=== PATIENT | male | born 1935 | race Caucasian/White ===

== ENCOUNTER 2021-09-02 15:22 | Inpatient (IN) | payer MEDICARE, BC ==
[2021-09-02] MEDS ORDERED: ACETAMINOPHEN TAB 325 MG TAB PO PRN (18:38)
[2021-09-02] MEDS ORDERED: NALOXONE 0.4 MG/ML 1 ML VIAL IV PRN (18:38)
[2021-09-02] MEDS ORDERED: MELATONIN 3 MG TABLET PO PRN (18:38)
[2021-09-02] MEDS ORDERED: ONDANSETRON 4 MG/2 ML VIAL IVP PRN (18:38)
[2021-09-02] MEDS ORDERED: VANCOMYCIN IV PER PHARMACY 1 EACH MISC MISCELLANE PRN (18:53)
[2021-09-02 20:29] LABS: Glucose,Whole Blood 250 mg/dL (75-99)
[2021-09-02] MEDS ORDERED: MORPHINE SULFATE IR 15 MG TABLET PO SCH (21:00)
[2021-09-02] MEDS ORDERED: VANCOMYCIN 1,500 MG in SODIUM CHLORIDE 0.9% 250 ML IVPB ONE (21:30)
[2021-09-02] MEDS: GLIMEPIRIDE 4 MG TAB PO SCH (21:59)
[2021-09-02] MEDS: carvediloL 3.125 MG TAB PO SCH (21:59)
[2021-09-02] MEDS: INSULIN ASPART (NovoLOG) 100 UNIT/ML VIAL SQ SCH (22:00)
[2021-09-02] MEDS: HEPARIN SODIUM,PORCINE/PF 5,000 UNIT/0.5 ML SYRINGE SQ SCH (22:00)
[2021-09-02] MEDS: traZODone HCL 50 MG TAB PO SCH (22:00)
[2021-09-02] MEDS: PREGABALIN 75 MG CAP PO SCH (22:00)
[2021-09-02] MEDS: MORPHINE SULFATE ER 15 MG TABLET PO SCH (22:00)
[2021-09-02] MEDS: AMPICILLIN-SULBACTAM 3 GM in SODIUM CHLORIDE 0.9% 100 ML IVPB SCH (22:32)
[2021-09-03 04:33] LABS: Basophils % (A) 0 %; Eosinophils # (A) 0.1 k/uL (0-0.7); Eosinophils % (A) 1 %; HCT 40.2 % (39.0-53.0); Lymphocytes # (A) 0.9 k/uL (1.0-4.8); Lymphocytes % (A) 14 %; MCH 27.3 pg (25.0-35.0); MCHC 32.4 g/dL (31.0-37.0); MCV 84.3 fL (80.0-100.0); Mean Platelet Volume 8.1; Monocytes # (A) 0.4 k/uL (0-1.0); Monocytes % (A) 7 %; Neutrophils # (A) 4.7 k/uL (1.3-7.7); Neutrophils % (A) 75 %; Platelet Count 131 k/uL (150-450); RBC 4.77 m/uL (4.30-5.90); RDW 14.2 % (11.5-15.5); WBC 6.2 k/uL (3.8-10.6)
[2021-09-03 04:35] LABS: INR 1.2 (<1.2); Prothrombin Time 12.7 sec (9.0-12.0)
[2021-09-03 04:48] LABS: ALT 13 U/L (4-49); AST 29 U/L (17-59); African American GFR (CKD) 44 (>60 ml/min/1.73 sqM); Albumin 3.4 g/dL (3.5-5.0); Albumin/Globulin Ratio 1.2; Alkaline Phosphatase 40 U/L (38-126); Anion Gap 7 mmol/L; Blood Urea Nitrogen 44 mg/dL (9-20); Carbon Dioxide 30 mmol/L (22-30); Chloride 98 mmol/L (98-107); Globulin 2.9 g/dL; Glucose 114 mg/dL (74-99); Magnesium 2.1 mg/dL (1.6-2.3); Non-African American GFR(CKD) 38 (>60 ml/min/1.73 sqM); Potassium 3.8 mmol/L (3.5-5.1); Sodium 135 mmol/L (137-145); Total Bilirubin 1.2 mg/dL (0.2-1.3); Total Protein 6.3 g/dL (6.3-8.2)
--- NOTE | 2021-09-03 06:49 | P.GSCN ---
History of Present Illness History of present illness: 86-year-old gentleman who is been admitted to the hospital with gangrene of the left foot big toe. According to patient he was treated for wound on his left big toe at the wound clinic for the last few months is getting worse patient has been admitted I was consulted for evaluation and treatment his left big toe has a gangrene of the some redness on the dorsal aspect of the foot Medical history history of coronary artery disease patient had a CABG and stent placed in the past On examination neck is supple no bruit appreciated Chest is clear first and second sound normal good and both lungs Abdomen is soft non-tender Vascular examination brachial radial and femoral pulses are present dorsal pedis is present patient has a left big toe gangrene with some redness noted on the d orsal suspect the foot Plan is left big toe amputation risk and complication discussed we will arrange for surgery keep patient nothing by mouth Past Medical History Past Medical History: Heart Failure, Diabetes Mellitus, Eye Disorder, Hypertension, Myocardial Infarction ([place]), Prostate Disorder, Skin Disorder Additional Past Medical History / Comment(s): MT's, stent, nueropathy, prostate cancer, cellulitis, chronic back pain Last Myocardial Infarction Date:: Pt unaware History of Any Multi-Drug Resistant Organisms: None Reported Past Surgical History: Back Surgery, Cholecystectomy, Heart Catheterization, Heart Catheterization With Stent, Orthopedic Surgery, Pacemaker, Tonsillectomy Additional Past Surgical History / Comment(s): stents, pacemaker w/def Past Anesthesia/Blood Transfusion Reactions: No Reported Reaction Date of Last Stent Placement:: 01/17/21 Type of Cardiac Device: Permanent Pacemaker Device Placement Date:: 09/11/17 Past Psychological History: Depression Smoking Status: Never smoker Past Alcohol Use History: None Reported Past Drug Use History: None Reported Medications and Allergies Home Medications Medication Instructions Recorded Confirmed Type Aspirin 81 mg PO DAILY 09/02/21 09/02/21 History Blue Emu Otc Cream 1 applic TOPICAL DAILY PRN 09/02/21 09/02/21 History Bumetanide [BUMEX] 0.5 mg PO DAILY 09/02/21 09/02/21 History Celecoxib [CeleBREX] 100 mg PO BID PRN 09/02/21 09/02/21 History Cholecalciferol [Vitamin D3 (25 25 mcg PO DAILY 09/02/21 09/02/21 History Mcg = 1000 Iu)] DULoxetine HCL [Cymbalta] 30 mg PO DAILY 09/02/21 09/02/21 History Digoxin [Lanoxin] 125 mcg PO DAILY 09/02/21 09/02/21 History Fenofibric Acid (Choline) 135 mg PO DAILY 09/02/21 09/02/21 History [Trilipix] Glimepiride [Amaryl] 4 mg PO BID 09/02/21 09/02/21 History Lidocaine 5% Patch [Lidoderm] 1 patch TOPICAL DAILY PRN 09/02/21 09/02/21 History Mometasone/Formoterol [Dulera 100 1 puff PO RT-BID 09/02/21 09/02/21 History Mcg-5 Mcg Inhaler] Morphine Sulfate 15 mg PO BID 09/02/21 09/02/21 History Multivitamins, Thera [Multivitamin 1 tab PO DAILY 09/02/21 09/02/21 History (formulary)] Pantoprazole [Protonix] 40 mg PO DAILY 09/02/21 09/02/21 History Pregabalin [Lyrica] 75 mg PO BID 09/02/21 09/02/21 History Rosuvastatin [Crestor] 10 mg PO DAILY 09/02/21 09/02/21 History Tamsulosin HCl [Flomax] 0.4 mg PO DAILY 09/02/21 09/02/21 History carvediloL [Coreg] 3.125 mg PO BID 09/02/21 09/02/21 History traZODone HCL [TraZODone HCl] 50 mg PO HS 09/02/21 09/02/21 History Allergies Allergy/AdvReac Type Severity Reaction Status Date / Time contrast dye Allergy Unknown Uncoded 09/02/21 21:04 Surgical - Exam Vital Signs Temp Pulse Resp BP Pulse Ox 98.5 F 81 18 125/67 96 09/02/21 18:11 09/02/21 18:11 09/02/21 18:11 09/02/21 18:11 09/02/21 18:11 Results - Labs 09/03/21 03:57 09/03/21 03:57 Abnormal Lab Results - Last 24 Hours (Table) 09/02/21 09/02/21 09/03/21 Range/Units 19:07 20:27 03:57 Plt Count 131 L (150-450) k/uL Lymphocytes # 0.9 L (1.0-4.8) k/uL PT (9.0-12.0) sec INR (<1.2) Sodium (137-145) mmol/L BUN (9-20) mg/dL Creatinine 1.51 H (0.66-1.25) mg/dL Glucose (74-99) mg/dL POC Glucose (mg/dL) 250 H (75-99) mg/dL Albumin (3.5-5.0) g/dL 09/03/21 09/03/21 Range/Units 03:57 03:57 Plt Count (150-450) k/uL Lymphocytes # (1.0-4.8) k/uL PT 12.7 H (9.0-12.0) sec INR 1.2 H (<1.2) Sodium 135 L (137-145) mmol/L BUN 44 H (9-20) mg/dL Creatinine 1.62 H (0.66-1.25) mg/dL Glucose 114 H (74-99) mg/dL POC Glucose (mg/dL) (75-99) mg/dL Albumin 3.4 L (3.5-5.0) g/dL Diabetes panel 09/02/21 09/03/21 Range/Units 19:07 03:57 Sodium 135 L (137-145) mmol/L Potassium 3.8 (3.5-5.1) mmol/L Chloride 98 (98-107) mmol/L Carbon Dioxide 30 (22-30) mmol/L BUN 44 H (9-20) mg/dL Creatinine 1.51 H 1.62 H (0.66-1.25) mg/dL Glucose 114 H (74-99) mg/dL Calcium 9.0 (8.4-10.2) mg/dL AST 29 (17-59) U/L ALT 13 (4-49) U/L Alkaline Phosphatase 40 (38-126) U/L Total Protein 6.3 (6.3-8.2) g/dL Albumin 3.4 L (3.5-5.0) g/dL Calcium panel 09/03/21 Range/Units 03:57 Calcium 9.0 (8.4-10.2) mg/dL Phosphorus 3.0 (2.5-4.5) mg/dL Albumin 3.4 L (3.5-5.0) g/dL Pituitary panel 09/02/21 09/03/21 Range/Units 19:07 03:57 Sodium 135 L (137-145) mmol/L Potassium 3.8 (3.5-5.1) mmol/L Chloride 98 (98-107) mmol/L Carbon Dioxide 30 (22-30) mmol/L BUN 44 H (9-20) mg/dL Creatinine 1.51 H 1.62 H (0.66-1.25) mg/dL Glucose 114 H (74-99) mg/dL Calcium 9.0 (8.4-10.2) mg/dL Adrenal panel 09/02/21 09/03/21 Range/Units 19:07 03:57 Sodium 135 L (137-145) mmol/L Potassium 3.8 (3.5-5.1) mmol/L Chloride 98 (98-107) mmol/L Carbon Dioxide 30 (22-30) mmol/L BUN 44 H (9-20) mg/dL Creatinine 1.51 H 1.62 H (0.66-1.25) mg/dL Glucose 114 H (74-99) mg/dL Calcium 9.0 (8.4-10.2) mg/dL Total Bilirubin 1.2 (0.2-1.3) mg/dL AST 29 (17-59) U/L ALT 13 (4-49) U/L Alkaline Phosphatase 40 (38-126) U/L Total Protein 6.3 (6.3-8.2) g/dL Albumin 3.4 L (3.5-5.0) g/dL
[2021-09-03 07:25] LABS: Glucose,Whole Blood 91 mg/dL (75-99)
[2021-09-03] MEDS: HEPARIN SODIUM,PORCINE/PF 5,000 UNIT/0.5 ML SYRINGE SQ SCH ×2 (07:33→20:51)
[2021-09-03] MEDS: INSULIN ASPART (NovoLOG) 100 UNIT/ML VIAL SQ SCH ×4 (09:05→21:13)
[2021-09-03] MEDS: AMPICILLIN-SULBACTAM 3 GM in SODIUM CHLORIDE 0.9% 100 ML IVPB SCH ×2 (09:06→20:50)
[2021-09-03] MEDS: ATORVASTATIN 20 MG TAB PO SCH (09:48)
[2021-09-03] MEDS: MORPHINE SULFATE ER 15 MG TABLET PO SCH ×2 (09:50→20:52)
[2021-09-03] MEDS: DIGOXIN 125 MCG TAB PO SCH (09:51)
[2021-09-03] MEDS: PREGABALIN 75 MG CAP PO SCH ×2 (09:52→20:51)
[2021-09-03] MEDS: FENOFIBRATE 160 MG TAB PO SCH (09:52)
[2021-09-03] MEDS: GLIMEPIRIDE 4 MG TAB PO SCH ×2 (09:55→20:52)
[2021-09-03] MEDS: CHOLECALCIFEROL 25 MCG (1000 IU) TABLET PO SCH (09:55)
[2021-09-03] MEDS: TAMSULOSIN 0.4 MG CAP.ER.24H PO SCH (09:56)
[2021-09-03] MEDS: PANTOPRAZOLE 40 MG TABLET PO SCH (10:19)
[2021-09-03] MEDS: carvediloL 3.125 MG TAB PO SCH ×2 (11:01→17:44)
[2021-09-03 12:04] LABS: Glucose,Whole Blood 62 mg/dL (75-99)
[2021-09-03] MEDS ORDERED: DEXTROSE 50% SYRINGE 50 ML IVP ONE (12:08)
[2021-09-03] MEDS ORDERED: DEXTROSE 50% SYRINGE 50 ML IVP STA (12:09)
[2021-09-03 12:32] LABS: Glucose,Whole Blood 182 mg/dL (75-99)
--- NOTE | 2021-09-03 13:42 | P.HPIM ---
History of Present Illness H&P Date: 09/03/21 This is an 86-year-old male who was recently admitted to [facility] for increasing pain of the right great toe and concern for cellulitis with gangrene. Patient was transferred here to [facility] for further evaluation and initially started on IV Unasyn and will continue with Unasyn and vancomycin and consult infectious disease. Vascular surgery Dr. Mendoza also consulted for possible amputation of the right great toe. Patient states he has been following at the wound care center in [place] who has been treating the foot infection and has progressively gotten worse in transferred here for further evaluation. Patient follows with in the outpatient setting. Louisa vences has a past medical history of heart failure, atrial fibrillation, CAD, arthritis, anxiety, depression diabetes mellitus type 2, I disorder, hypertension, myocardial infarction with stents in December 2020, permanent pacemaker placement in 2016 prostate cancer, and chronic back pain. patient also follows at the pain clinic every 2 months for his chronic back pain and is prescribed MS Contin. Patient denies having any right foot pain but his continued with chronic back pain during this hospitalization. Right great toe is positive for necrotic tissue and eschar noted along with some surrounding cellulitis with redness and inflammation that is extending up the dorsal aspect of the right foot and stops midfoot. Plan is for amputation of the right great toe with vascular surgery this afternoon. Initial labs show a white blood count of 6.2, hemoglobin is 13.0, platelets are 131, INR is 1.2, sodium is 135, potassium is 3.8, creatinine is 1.62, and BUN is 44, calcium is 9.0, phosphorus is 3.0, magnesium is 2.1, liver functions within normal limits. Review of Systems Constitutional: Denies chills, Denies fever Eyes: bilateral decreased vision (Cataracts) Ears, nose, mouth and throat: Denies headache, Denies sore throat Cardiovascular: Denies chest pain, Denies shortness of breath Respiratory: Denies cough Gastrointestinal: Denies abdominal pain, Denies diarrhea, Denies nausea, Denies vomiting Musculoskeletal: Reports low back pain (Chronic back pain, sees pain management outpatient) Integumentary: Reports color changes, Reports darkening of skin, Reports foot/leg ulcers Neurological: Denies numbness, Denies weakness Psychiatric: Denies anxiety, Denies depression Endocrine: Denies fatigue, Denies weight change Past Medical History Past Medical History: Cancer, Heart Failure, Diabetes Mellitus, Eye Disorder, Hypertension, Myocardial Infarction ([place]), Prostate Disorder, Skin Disorder Additional Past Medical History / Comment(s): [place]'s, stent, nueropathy, prostate cancer, cellulitis, chronic back pain Last Myocardial Infarction Date:: Pt unaware History of Any Multi-Drug Resistant Organisms: None Reported Past Surgical History: Back Surgery, Cholecystectomy, Heart Catheterization, Heart Catheterization With Stent, Orthopedic Surgery, Pacemaker, Tonsillectomy Additional Past Surgical History / Comment(s): stents, pacemaker w/def Past Anesthesia/Blood Transfusion Reactions: No Reported Reaction Date of Last Stent Placement:: 01/17/21 Type of Cardiac Device: Permanent Pacemaker Device Placement Date:: 09/11/17 Past Psychological History: Depression Smoking Status: Never smoker Past Alcohol Use History: None Reported Past Drug Use History: None Reported Medications and Allergies Home Medications Medication Instructions Recorded Confirmed Type Aspirin 81 mg PO DAILY 09/02/21 09/02/21 History Blue Emu Otc Cream 1 applic TOPICAL DAILY PRN 09/02/21 09/02/21 History Bumetanide [BUMEX] 0.5 mg PO DAILY 09/02/21 09/02/21 History Celecoxib [CeleBREX] 100 mg PO BID PRN 09/02/21 09/02/21 History Cholecalciferol [Vitamin D3 (25 25 mcg PO DAILY 09/02/21 09/02/21 History Mcg = 1000 Iu)] DULoxetine HCL [Cymbalta] 30 mg PO DAILY 09/02/21 09/02/21 History Digoxin [Lanoxin] 125 mcg PO DAILY 09/02/21 09/02/21 History Fenofibric Acid (Choline) 135 mg PO DAILY 09/02/21 09/02/21 History [Trilipix] Glimepiride [Amaryl] 4 mg PO BID 09/02/21 09/02/21 History Lidocaine 5% Patch [Lidoderm] 1 patch TOPICAL DAILY PRN 09/02/21 09/02/21 History Mometasone/Formoterol [Dulera 100 1 puff PO RT-BID 09/02/21 09/02/21 History Mcg-5 Mcg Inhaler] Morphine Sulfate 15 mg PO BID 09/02/21 09/02/21 History Multivitamins, Thera [Multivitamin 1 tab PO DAILY 09/02/21 09/02/21 History (formulary)] Pantoprazole [Protonix] 40 mg PO DAILY 09/02/21 09/02/21 History Pregabalin [Lyrica] 75 mg PO BID 09/02/21 09/02/21 History Rosuvastatin [Crestor] 10 mg PO DAILY 09/02/21 09/02/21 History Tamsulosin HCl [Flomax] 0.4 mg PO DAILY 09/02/21 09/02/21 History carvediloL [Coreg] 3.125 mg PO BID 09/02/21 09/02/21 History traZODone HCL [TraZODone HCl] 50 mg PO HS 09/02/21 09/02/21 History Allergies Allergy/AdvReac Type Severity Reaction Status Date / Time contrast dye Allergy Unknown Uncoded 09/02/21 21:04 Physical Exam Vitals: Vital Signs Temp Pulse Resp BP Pulse Ox 09/03/21 05:00 98.6 F 80 18 96/60 94 L 09/02/21 20:17 18 09/02/21 20:00 99.2 F 79 16 125/71 95 09/02/21 18:11 98.5 F 81 18 125/67 96 Intake and Output 09/02/21 09/03/21 09/03/21 22:59 06:59 14:59 Intake Total 225 Balance 225 Intake: Intake, IV Titration 225 Amount Ampicillin-Sulbactam 3 gm 100 In Sodium Chloride 0.9% 100 ml @ 200 mls/hr IVPB Q12HR [facility] Rx#:[id number] Vancomycin 1,500 mg In 125 Sodium Chloride 0.9% 250 ml @ 125 mls/hr IVPB Q24H [facility] Rx#:[id number] Other: Voiding Method Toilet Urinal Weight 86 kg Gen: This is a 86-year-old male awake, alert and oriented 3, well-developed, well-nourished. HEENT: Head is atraumatic, normocephalic. Pupils equal, round. Sclerae is anicteric. NECK: Supple. No JVD. No lymphadenopathy. No thyromegaly. LUNGS: Clear to auscultation. No wheezes or rhonchi. No intercostal retractions. HEART: S1, S2 are muffled ABDOMEN: Soft. Bowel sounds are present. No masses. No tenderness. EXTREMITIES: Right foot erythema along with some swelling noted at the dorsal aspect of the right foot that travels to the mid center of the foot along with some necrotic tissue and eschar noted at the right great toe with some clear drainage noted as well. No calf tenderness. NEUROLOGICAL: Patient is awake, alert and oriented x3. Cranial nerves 2 through 12 are grossly intact. Results CBC & Chem 7: 09/03/21 03:57 09/03/21 03:57 Labs: Abnormal Lab Results - Last 24 Hours (Table) 09/02/21 09/02/21 09/03/21 Range/Units 19:07 20:27 03:57 Plt Count 131 L (150-450) k/uL Lymphocytes # 0.9 L (1.0-4.8) k/uL PT (9.0-12.0) sec INR (<1.2) Sodium (137-145) mmol/L BUN (9-20) mg/dL Creatinine 1.51 H (0.66-1.25) mg/dL Glucose (74-99) mg/dL POC Glucose (mg/dL) 250 H (75-99) mg/dL Albumin (3.5-5.0) g/dL 09/03/21 09/03/21 Range/Units 03:57 03:57 Plt Count (150-450) k/uL Lymphocytes # (1.0-4.8) k/uL PT 12.7 H (9.0-12.0) sec INR 1.2 H (<1.2) Sodium 135 L (137-145) mmol/L BUN 44 H (9-20) mg/dL Creatinine 1.62 H (0.66-1.25) mg/dL Glucose 114 H (74-99) mg/dL POC Glucose (mg/dL) (75-99) mg/dL Albumin 3.4 L (3.5-5.0) g/dL Thrombosis Risk Factor Assmnt - DVT/VTE Prophylaxis DVT/VTE Prophylaxis: Pharmacologic Prophylaxis ordered - Choose All That Apply Any of the Below Risk Factors Present?: No Each Risk Factor Represents 2 Points: Malignancy Each Risk Factor Represents 3 Points: Age 75 years or older Other congenital or acquired thrombophilia - If yes, enter type in comment: No Thrombosis Risk Factor Assessment Total Risk Factor Score: 5 Thrombosis Risk Factor Assessment Level: High Risk Assessment and Plan Assessment: Right great toe gangrene with surrounding cellulitis Diabetes mellitus type 2 Acute kidney injury most likely prerenal Possible osteomyelitis of the right toe Chronic low back pain Chronic heart failure, EF unknown Hypertension Peripheral neuropathy Permanent pacemaker placement Past medical history of myocardial infarction with stent placement History of anxiety/depression Plan: Recommend to continue with current medications and patient is currently nothing by mouth and monitor blood sugars before meals and at bedtime closely as patient had a blood sugar reading of 62 secondary to being nothing by mouth for surgery this afternoon. Patient was given an amp of D50 and will monitor closely. Resume diet when surgery is complete. Infectious disease consulted and patient is maintained on IV Unasyn along with IV vancomycin. Vascular surgery Dr. Mendoza consulted and evaluated the patient and patient will undergo amputation of the right great toe this afternoon secondary to gangrene and will await surgical report. Patient does have a past medical history of heart failure and states his kidney functions are chronically 1.6 1.7 and takes Bumex and will hold for now and possibly resume in the morning. Other appropriate home medications have been resumed and will monitor closely. Time with Patient: Greater than 30
[2021-09-03] MEDS ORDERED: carvediloL 3.125 MG TAB PO ONE (14:45)
[2021-09-03] MEDS ORDERED: LACTATED RINGERS 1,000 ML IV ONE (14:50)
[2021-09-03] MEDS ORDERED: LIDOCAINE 1% INJ 10MG/ML (20 ML MDV) SQ ONE ×2 (15:22)
--- NOTE | 2021-09-03 16:31 | HP ---
HISTORY AND PHYSICAL ADDENDUM TO HISTORY AND PHYSICAL: ADDENDUM: Right foot gangrene for right foot big toe amputation. MMODL / IJN: [id number] /
--- NOTE | 2021-09-03 16:31 | OP ---
OPERATIVE REPORT PREOPERATIVE DIAGNOSIS: Gangrene in the right foot big toe. POSTOPERATIVE DIAGNOSIS: Gangrene in the right foot big toe. PROCEDURE: Amputation of the right foot big toe at metatarsophalangeal joint. ANESTHESIA: IV sedation and local anesthesia. PROCEDURE DESCRIPTION: This patient was brought to the operating room. Right foot was prepped and draped in usual sterile manner. This patient has a chronic wound on the right foot big toe with gangrene changes involving the big toe. Lidocaine plain 1% plain was infiltrated for the ring block and incision was made, elliptical, on the dorsal aspect of the foot, went circumferentially around the plantar aspect of the foot, deepened through skin, fat and fascia. Then we divided the tendons on the plantar aspect and then on the dorsal aspect. The big toe was kept in flexion position until we reached the metatarsophalangeal joint, and ligaments were divided and the big toe was removed. There were some bleeding points which were suture-ligated with 4-0 Prolene. Wound was copiously irrigated with hydrogen peroxide and saline. Incision was closed in 2 layers using 0 Vicryl and skin was closed with 3-0 nylon with interrupted suture. Dressing was applied. The patient tolerated the procedure well and was transferred to the recovery room in satisfactory condition. MMODL / IJN: [id number] /
[2021-09-03 16:41] LABS: Glucose,Whole Blood 61 mg/dL (75-99)
[2021-09-03 16:42] LABS: Glucose,Whole Blood 56 mg/dL (75-99)
[2021-09-03] MEDS ORDERED: HYDROmorphone 0.5 MG/0.5 ML SYRINGE IVP ONE (17:11)
[2021-09-03 17:17] LABS: Glucose,Whole Blood 62 mg/dL (75-99)
[2021-09-03 17:43] LABS: Glucose,Whole Blood 123 mg/dL (75-99)
[2021-09-03] MEDS: traZODone HCL 50 MG TAB PO SCH (20:52)
[2021-09-03 21:00] LABS: Glucose,Whole Blood 228 mg/dL (75-99)
[2021-09-03] MEDS: VANCOMYCIN 1,500 MG in SODIUM CHLORIDE 0.9% 250 ML IVPB SCH (22:36)
[2021-09-04] MEDS: MORPHINE SULFATE ER 15 MG TABLET PO SCH ×2 (04:31→20:36)
[2021-09-04 07:29] LABS: Glucose,Whole Blood 202 mg/dL (75-99)
[2021-09-04] MEDS: carvediloL 3.125 MG TAB PO SCH ×2 (08:23→18:07)
[2021-09-04] MEDS: PANTOPRAZOLE 40 MG TABLET PO SCH (08:24)
[2021-09-04] MEDS: HYDROcodone/APAP 5-325MG 1 EACH TAB PO PRN ×2 (08:30→19:11)
[2021-09-04] MEDS: GLIMEPIRIDE 4 MG TAB PO SCH ×2 (09:37→20:36)
[2021-09-04] MEDS: ATORVASTATIN 20 MG TAB PO SCH (09:37)
[2021-09-04] MEDS: PREGABALIN 75 MG CAP PO SCH ×2 (09:39→20:37)
[2021-09-04] MEDS: DIGOXIN 125 MCG TAB PO SCH (09:40)
[2021-09-04] MEDS: TAMSULOSIN 0.4 MG CAP.ER.24H PO SCH (09:40)
[2021-09-04] MEDS: FENOFIBRATE 160 MG TAB PO SCH (09:40)
[2021-09-04] MEDS: CHOLECALCIFEROL 25 MCG (1000 IU) TABLET PO SCH (09:40)
[2021-09-04] MEDS: HEPARIN SODIUM,PORCINE/PF 5,000 UNIT/0.5 ML SYRINGE SQ SCH ×2 (10:06→20:36)
[2021-09-04] MEDS: AMPICILLIN-SULBACTAM 3 GM in SODIUM CHLORIDE 0.9% 100 ML IVPB SCH ×2 (10:06→19:46)
[2021-09-04] MEDS: INSULIN ASPART (NovoLOG) 100 UNIT/ML VIAL SQ SCH ×4 (10:07→20:37)
[2021-09-04 10:09] LABS: Basophils % (A) 0 %; Eosinophils # (A) 0.1 k/uL (0-0.7); Eosinophils % (A) 2 %; HCT 42.5 % (39.0-53.0); HGB 13.3 gm/dL (13.0-17.5); Lymphocytes # (A) 0.8 k/uL (1.0-4.8); Lymphocytes % (A) 11 %; MCH 27.3 pg (25.0-35.0); MCHC 31.2 g/dL (31.0-37.0); MCV 87.4 fL (80.0-100.0); Monocytes # (A) 0.6 k/uL (0-1.0); Monocytes % (A) 7 %; Neutrophils # (A) 6.1 k/uL (1.3-7.7); Neutrophils % (A) 78 %; Platelet Count 140 k/uL (150-450); RBC 4.86 m/uL (4.30-5.90); RDW 13.9 % (11.5-15.5); WBC 7.9 k/uL (3.8-10.6)
[2021-09-04 10:24] LABS: African American GFR (CKD) 52 (>60 ml/min/1.73 sqM); Anion Gap 9 mmol/L; Blood Urea Nitrogen 37 mg/dL (9-20); Calcium 9.1 mg/dL (8.4-10.2); Carbon Dioxide 28 mmol/L (22-30); Chloride 99 mmol/L (98-107); Glucose 208 mg/dL (74-99); Non-African American GFR(CKD) 45 (>60 ml/min/1.73 sqM); Potassium 4.4 mmol/L (3.5-5.1); Sodium 136 mmol/L (137-145)
--- NOTE | 2021-09-04 11:21 | P.CONS ---
History of Present Illness - Reason for Consult Consult date: 09/03/21 right big toe gangrene Requesting physician: Caron Pandey - Chief Complaint right big toe non healing wound and discoloration x weeks - History of Present Illness History of Present Illness : Patient is 86-year male with a past medical history significant for right big toe wound that started few months ago and the patient has been following at the wound care center [facility], patient was noticed to have worsening of his right big toe wound with more necrotic changes for the patient went to [facility] and the patient subsequently has been transferred to [facility] for further management, patient did have underlying neuropathy hands denies significant pain however mention on the last few days has been more of a pressure-like with some dull aching 2-3 of 10 no radiation however has been concerned more about the black discoloration of his big toe with some redness that has been spreading on the dorsum aspect of his right foot patient denies having any foul-smelling drainage and denies high- grade fever on presentation the hospital the patient was afebrile patient did have normal white count he did have elevated BUN/creatinine liver enzymes are normal patient be seen by vascular surgery and plan for possible amputation of the right big toe this afternoon infectious disease was consulted for management of antibiotic therapy currently on Unasyn and vancomycin Review of system: CONSTITUTIONAL: Positive for weakness denies high-grade fever. EYES: No complaint. ENT: No complaint. RESPIRATORY: No complaint. CARDIOVASCULAR: No complaint. GENITOURINARY: No complaint. GASTROINTESTINAL: No complaint. MUSCULOSKELETAL: As per history of present illness. INTEGUMENTARY : No complaint. PSYCHOLOGIC: No complaint. ENDOCRINE: No complaint. NEUROLOGIC: No complaint. Past medical history : Reviewed, documented below Past surgical history : Reviewed, documented below Social history: Reviewed, documented below Medications: Reviewed, as documented below EXAMINATION: Vital sigans= Reviewed and documented below GENERAL DESCRIPTION: Elderly male lying in bed, no distress. No tachypnea or accessory muscle of respiration use. HEENT: Shows Pallor , no scleral icterus. Oral mucous membrane is dry. NECK: Trachea central, no thyromegaly. LUNGS: Unlabored breathing. Clear to auscultation anteriorly. No wheeze or crackle. HEART: S1, S2, regular rate and rhythm. ABDOMEN: Soft, no tenderness , guarding or rigidity EXTREMITIES: No edema feet, right big toe with necrotic changes significant swelling with redness that has been spreading on the dorsum aspect of the right foot SKIN: No rash, no masses palpable. NEUROLOGICAL: The patient is awake, alert, oriented x3, mood and affect normal. LABS AND RADIOLOGY: Reviewed results see below Assessment : Patient with right big toe gangrene in this patient symptoms started with a wound to the right big toe few months ago seem to have failed to respond to the outpatient conservative therapy now with concern for gangrene and significant cellulitis will need to cover for the polymicrobial bacteria that can be associated with this type of infection Plan: 1-vancomycin pharmacy to dose target trough of 15 while watching kidney function and vancomycin trough closely 2-Unasyn 3 g every 6 hours 3-await amputation and deep cultures We will follow on clinical condition and cultures to further adjust medication if needed Thank you for this consultation we will follow the patient along with you Past Medical History Past Medical History: Heart Failure, Diabetes Mellitus, Eye Disorder, Hypertension, Myocardial Infarction ([place]), Prostate Disorder, Skin Disorder Additional Past Medical History / Comment(s): [place]'s, stent, nueropathy, prostate cancer, cellulitis, chronic back pain Last Myocardial Infarction Date:: Pt unaware History of Any Multi-Drug Resistant Organisms: None Reported Past Surgical History: Back Surgery, Cholecystectomy, Heart Catheterization, Heart Catheterization With Stent, Orthopedic Surgery, Pacemaker, Tonsillectomy Additional Past Surgical History / Comment(s): stents, pacemaker w/def Past Anesthesia/Blood Transfusion Reactions: No Reported Reaction Date of Last Stent Placement:: 01/17/21 Type of Cardiac Device: Permanent Pacemaker Device Placement Date:: 09/11/17 Past Psychological History: Depression Smoking Status: Never smoker Past Alcohol Use History: None Reported Past Drug Use History: None Reported Medications and Allergies Home Medications Medication Instructions Recorded Confirmed Type Aspirin 81 mg PO DAILY 09/02/21 09/02/21 History Blue Emu Otc Cream 1 applic TOPICAL DAILY PRN 09/02/21 09/02/21 History Bumetanide [BUMEX] 0.5 mg PO DAILY 09/02/21 09/02/21 History Celecoxib [CeleBREX] 100 mg PO BID PRN 09/02/21 09/02/21 History Cholecalciferol [Vitamin D3 (25 25 mcg PO DAILY 09/02/21 09/02/21 History Mcg = 1000 Iu)] DULoxetine HCL [Cymbalta] 30 mg PO DAILY 09/02/21 09/02/21 History Digoxin [Lanoxin] 125 mcg PO DAILY 09/02/21 09/02/21 History Fenofibric Acid (Choline) 135 mg PO DAILY 09/02/21 09/02/21 History [Trilipix] Glimepiride [Amaryl] 4 mg PO BID 09/02/21 09/02/21 History Lidocaine 5% Patch [Lidoderm] 1 patch TOPICAL DAILY PRN 09/02/21 09/02/21 History Mometasone/Formoterol [Dulera 100 1 puff PO RT-BID 09/02/21 09/02/21 History Mcg-5 Mcg Inhaler] Morphine Sulfate 15 mg PO BID 09/02/21 09/02/21 History Multivitamins, Thera [Multivitamin 1 tab PO DAILY 09/02/21 09/02/21 History (formulary)] Pantoprazole [Protonix] 40 mg PO DAILY 09/02/21 09/02/21 History Pregabalin [Lyrica] 75 mg PO BID 09/02/21 09/02/21 History Rosuvastatin [Crestor] 10 mg PO DAILY 09/02/21 09/02/21 History Tamsulosin HCl [Flomax] 0.4 mg PO DAILY 09/02/21 09/02/21 History carvediloL [Coreg] 3.125 mg PO BID 09/02/21 09/02/21 History traZODone HCL [TraZODone HCl] 50 mg PO HS 09/02/21 09/02/21 History Allergies Allergy/AdvReac Type Severity Reaction Status Date / Time contrast dye Allergy Unknown Uncoded 09/03/21 14:52 Physical Exam Vitals: Vital Signs Temp Pulse Resp BP Pulse Ox 09/03/21 05:00 98.6 F 80 18 96/60 94 L 09/02/21 20:17 18 09/02/21 20:00 99.2 F 79 16 125/71 95 09/02/21 18:11 98.5 F 81 18 125/67 96 Intake and Output 09/02/21 09/03/21 09/03/21 22:59 06:59 14:59 Intake Total 225 Balance 225 Intake: Intake, IV Titration 225 Amount Ampicillin-Sulbactam 3 gm 100 In Sodium Chloride 0.9% 100 ml @ 200 mls/hr IVPB Q12HR [facility] Rx#:[id number] Vancomycin 1,500 mg In 125 Sodium Chloride 0.9% 250 ml @ 125 mls/hr IVPB Q24H [facility] Rx#:[id number] Other: Voiding Method Toilet Toilet Urinal Urinal Weight 86 kg Results CBC & Chem 7: 09/04/21 09:09 09/04/21 09:09 Labs: Abnormal Lab Results - Last 24 Hours (Table) 09/02/21 09/02/21 09/03/21 Range/Units 19:07 20:27 03:57 Plt Count 131 L (150-450) k/uL Lymphocytes # 0.9 L (1.0-4.8) k/uL PT (9.0-12.0) sec INR (<1.2) Sodium (137-145) mmol/L BUN (9-20) mg/dL Creatinine 1.51 H (0.66-1.25) mg/dL Glucose (74-99) mg/dL POC Glucose (mg/dL) 250 H (75-99) mg/dL Albumin (3.5-5.0) g/dL 09/03/21 09/03/21 Range/Units 03:57 03:57 Plt Count (150-450) k/uL Lymphocytes # (1.0-4.8) k/uL PT 12.7 H (9.0-12.0) sec INR 1.2 H (<1.2) Sodium 135 L (137-145) mmol/L BUN 44 H (9-20) mg/dL Creatinine 1.62 H (0.66-1.25) mg/dL Glucose 114 H (74-99) mg/dL POC Glucose (mg/dL) (75-99) mg/dL Albumin 3.4 L (3.5-5.0) g/dL
[2021-09-04 12:33] LABS: Glucose,Whole Blood 333 mg/dL (75-99)
--- NOTE | 2021-09-04 15:36 | P.PN ---
Subjective Progress Note Date: 09/04/21 This is an 86-year-old male who was recently admitted to [facility] for increasing pain of the right great toe and concern for cellulitis with gangrene. Patient was transferred here to [facility] for further evaluation and initially started on IV Unasyn and will continue with Unasyn and vancomycin and consult infectious disease. Vascular surgery Dr. Mendoza also consulted for possible amputation of the right great toe. Patient states he has been following at the wound care center in [place] who has been treating the foot infection and has progressively gotten worse in transferred here for further evaluation. Patient follows with in the outpatient setting. Patient has a past medical history of heart failure, atrial fibrillation, CAD, arthritis, anxiety, depression diabetes mellitus type 2, I disorder, hypertension, myocardial infarction with stents in December 2020, permanent pacemaker placement in 2016 prostate cancer, and chronic back pain. patient also follows at the pain clinic every 2 months for his chronic back pain and is prescribed MS Contin. Patient denies having any right foot pain but his continued with chronic back pain during this hospitalization. Right great toe is positive for necrotic tissue and eschar noted along with some surrounding ce llulitis with redness and inflammation that is extending up the dorsal aspect of the right foot and stops midfoot. Plan is for amputation of the right great toe with vascular surgery this afternoon. Initial labs show a white blood count of 6.2, hemoglobin is 13.0, platelets are 131, INR is 1.2, sodium is 135, potassium is 3.8, creatinine is 1.62, and BUN is 44, calcium is 9.0, phosphorus is 3.0, magnesium is 2.1, liver functions within normal limits. 09/04/2021 Patient is seen in follow-up status post right great toe amputation with vascular surgery Dr. Mendoza yesterday. Patient is having some back pain and normally maintained on morphine sulfate and will add low-dose [place] for breakthr ough pain. Patient has peripheral neuropathy and normally does not feel much of his feet and states since the surgery he is feeling some surrounding tenderness of the right foot. Surgical dressing is Intact. Blood sugars are mildly elevated and have resumed home medications and will continue sliding scale and add low-dose long-acting and continued Accu-Cheks before meals and at bedtime. Labs: WBC is 7.9, hemoglobin is 13.3, platelets are 140, sodium is 136, potassium is 4.4, BUN is 37, creatinine is 1.4 to, calcium is 9.1 Review of systems: Constitutional: No reports of fatigue, fever, or chills Cardiovascular: No reports of chest pain or palpitations Respiratory: No reports of shortness of breath or cough GI: No reports of nausea, vomiting, or diarrhea : No reports of dysuria or retention Neurovascular: No reports of weakness or numbness All medications have been reviewed Active Medications Acetaminophen (Acetaminophen Tab 325 Mg Tab) 650 mg PO Q6HR PRN PRN Reason: Mild Pain or Fever > 100.5 Hydrocodone Bitart/Acetaminophen (Hydrocodone/Apap 5-325mg 1 Each Tab) 1 each PO Q6HR PRN PRN Reason: Pain Last Admin: 09/04/21 08:30 Dose: 1 each Documented by: Atorvastatin Calcium (Atorvastatin 20 Mg Tab) 20 mg PO DAILY [facility] Last Admin: 09/04/21 09:37 Dose: 20 mg Documented by: Carvedilol (Carvedilol 3.125 Mg Tab) 3.125 mg PO BID-W/MEALS [facility] Last Admin: 09/04/21 08:23 Dose: 3.125 mg Documented by: Cholecalciferol (Cholecalciferol 25 Mcg (1000 Iu) Tablet) 25 mcg PO DAILY [facility] Last Admin: 09/04/21 09:40 Dose: 25 mcg Documented by: Digoxin (Digoxin 125 Mcg Tab) 125 mcg PO DAILY [facility] Last Admin: 09/04/21 09:40 Dose: 125 mcg Documented by: Fenofibrate (Fenofibrate 160 Mg Tab) 160 mg PO DAILY [facility] Last Admin: 09/04/21 09:40 Dose: 160 mg Documented by: Glimepiride (Glimepiride 4 Mg Tab) 4 mg PO BID [facility] Last Admin: 09/04/21 09:37 Dose: 4 mg Documented by: Heparin Sodium (Porcine) (Heparin Sodium,Porcine/Pf 5,000 Unit/0.5 Ml Syringe) 5,000 unit SQ Q12HR [facility] Last Admin: 09/04/21 10:06 Dose: 5,000 unit Documented by: Ampicillin Sodium/Sulbactam (Sodium 3 gm/ Sodium Chloride) 100 mls @ 200 mls/hr IVPB Q12HR [facility] Last Admin: 09/04/21 10:06 Dose: 200 mls/hr Documented by: Vancomycin HCl 1,500 mg/ (Sodium Chloride) 250 mls @ 125 mls/hr IVPB Q24H [facility] Last Admin: 09/03/21 22:36 Dose: 125 mls/hr Documented by: Insulin Aspart (Insulin Aspart (Novolog) 100 Unit/Ml Vial) 0 unit SQ ACHS [facility]; Protocol Last Admin: 09/04/21 13:38 Dose: 6 unit Documented by: Insulin Detemir (Insulin Detemir (Levemir) 100 Unit/Ml Syr) 15 unit SQ HS [facility] Melatonin (Melatonin 3 Mg Tablet) 3 mg PO HS PRN PRN Reason: Insomnia Morphine Sulfate (Morphine Sulfate Er 15 Mg Tablet) 15 mg PO BID [facility]; Protocol Last Admin: 09/04/21 04:31 Dose: 15 mg Documented by: Naloxone HCl (Naloxone 0.4 Mg/Ml 1 Ml Vial) 0.2 mg IV Q2M PRN PRN Reason: Opioid Reversal Ondansetron HCl (Ondansetron 4 Mg/2 Ml Vial) 4 mg IVP Q8HR PRN PRN Reason: Nausea And Vomiting Pantoprazole Sodium (Pantoprazole 40 Mg Tablet) 40 mg PO AC-BRKFST [facility] Last Admin: 09/04/21 08:24 Dose: 40 mg Documented by: Pregabalin (Pregabalin 75 Mg Cap) 75 mg PO BID [facility] Last Admin: 09/04/21 09:39 Dose: 75 mg Documented by: Tamsulosin HCl (Tamsulosin 0.4 Mg Cap.Er.24h) 0.4 mg PO DAILY [facility] Last Admin: 09/04/21 09:40 Dose: 0.4 mg Documented by: Trazodone HCl (Trazodone Hcl 50 Mg Tab) 50 mg PO [facility] Last Admin: 09/03/21 20:52 Dose: 50 mg Documented by: Physical exam: Gen: This is a 86-year-old male awake, alert and oriented 3, well-developed, well-nourished. Currently sitting up in the chair with bilateral lower extremities elevated HEENT: Head is atraumatic, normocephalic. Pupils equal, round. Sclerae is anicteric. NECK: Supple. No JVD. No lymphadenopathy. No thyromegaly. LUNGS: Clear to auscultation. No wheezes or rhonchi. No intercostal retractions. HEART: S1, S2 are muffled ABDOMEN: Soft. Bowel sounds are present. No masses. No tenderness. EXTREMITIES: Right foot status post right great toe amputation and surgical dressing is dry and intact. No calf tenderness. NEUROLOGICAL: Patient is awake, alert and oriented x3. Cranial nerves 2 through 12 are grossly intact. Assessment: Right great toe gangrene with surrounding cellulitis Status post right great toe amputation Diabetes mellitus type 2, uncontrolled with hypoglycemia Acute kidney injury most likely prerenal, improving Possible osteomyelitis of the right toe Chronic low back pain Chronic heart failure, EF unknown Hypertension Peripheral neuropathy Permanent pacemaker placement Past medical history of myocardial infarction with stent placement History of anxiety/depression GI prophylaxis: Protonix DVT prophylaxis: Subcutaneous heparin No code Plan: Recommend to continue with current medications and patient is status post right great toe amputation. Infectious disease following and patient is maintained on IV Unasyn along with IV vancomycin. Vascular surgery Dr. Mendoza following as well. Awaiting for deep tissue cultures to determine discharge antibiotics. Patient's blood sugars are mildly elevated and will continue with Accu-Cheks before meals and at bedtime and sliding scale and will add low-dose long-acting and monitor closely. Repeat labs in a.m. Objective - Vital Signs Vital signs: Vital Signs Temp 98.1 F 09/04/21 06:30 Pulse 79 09/04/21 06:30 Resp 16 09/04/21 06:30 BP 127/80 09/04/21 06:30 Pulse Ox 96 09/04/21 05:00 Intake & Output 09/03/21 09/04/21 09/04/21 18:59 06:59 18:59 Intake Total 800 Output Total 10 200 Balance 790 -200 Weight 86 kg Intake: IV 700 Intake, IV Titration 100 Amount Ampicillin-Sulbactam 3 gm 100 In Sodium Chloride 0.9% 100 ml @ 200 mls/hr IVPB Q12HR [facility] Rx#:[id number] Output: Urine 200 Estimated Blood Loss 10 Other: Voiding Method Toilet Toilet Urinal Urinal - Labs CBC & Chem 7: 09/04/21 09:09 09/04/21 09:09 Labs: Abnormal Lab Results - Last 24 Hours (Table) 09/03/21 09/03/21 09/03/21 Range/Units 12:02 12:30 16:39 POC Glucose (mg/dL) 62 L 182 H 61 L (75-99) mg/dL 09/03/21 09/03/21 09/03/21 Range/Units 16:40 17:14 17:42 POC Glucose (mg/dL) 56 L 62 L 123 H (75-99) mg/dL 09/03/21 09/04/21 Range/Units 20:58 07:28 POC Glucose (mg/dL) 228 H 202 H (75-99) mg/dL Microbiology - Last 24 Hours (Table) 09/03/21 15:30 Tissue Culture - Preliminary Toe - Right First 09/03/21 15:30 Anaerobic Culture - Preliminary Toe - Right First 09/03/21 15:30 Anaerobic Culture - Preliminary Toe - Right First 09/03/21 15:30 Anaerobic Culture - Preliminary Toe - Right First 09/03/21 15:30 Wound Culture - Preliminary Toe - Right First 09/03/21 15:30 Wound Culture - Preliminary Toe - Right First 09/02/21 19:07 Blood Culture - Preliminary Blood No Growth after 24 hours
--- NOTE | 2021-09-04 16:40 | PN ---
PROGRESS NOTE DATE OF SERVICE: 09/04/2021 REASON FOR FOLLOWUP: Right big toe gangrene. INTERVAL HISTORY: Patient is afebrile. The patient is status post amputation right big toe completed yesterday. The patient tolerated the procedure. Complaining of some sensitivity to the area but no worsening pain. No chest pain, shortness of breath or cough. No abdominal pain. No diarrhea. PHYSICAL EXAMINATION: Blood pressure 109/68 with a pulse of 77, temperature 98.4. He is 96% on room air. General description is an elderly male lying in bed in no distress. Respiratory system: Unlabored breathing. Clear to auscultation anteriorly. Heart S1, S2. Regular rate and rhythm. Abdomen soft, no tenderness. Right big toe amputation site is currently dressed. No drainage on the dressing. LABS: Hemoglobin is 13.8, white count 7.9. Creatinine is 1.42. Cultures are currently pending. DIAGNOSTIC IMPRESSION AND PLAN: Patient with right big toe gangrene status post amputation. We will wait for the culture to finalize. Patient is covered with Unasyn and vancomycin to continue, adjusting it further based on culture report and clinical response and monitor clinical course closely. MMODL / IJN: [id number] /
[2021-09-04 17:44] LABS: Glucose,Whole Blood 211 mg/dL (75-99)
[2021-09-04] MEDS: SENNOSIDES 8.6 MG TAB PO SCH (18:08)
[2021-09-04 20:33] LABS: Glucose,Whole Blood 184 mg/dL (75-99)
[2021-09-04] MEDS: VANCOMYCIN 1,500 MG in SODIUM CHLORIDE 0.9% 250 ML IVPB SCH (20:36)
[2021-09-04] MEDS: traZODone HCL 50 MG TAB PO SCH (20:36)
[2021-09-04] MEDS: INSULIN DETEMIR (LEVEMIR) 100 UNIT/ML SYR SQ SCH (20:37)
[2021-09-05 07:10] LABS: Glucose,Whole Blood 156 mg/dL (75-99)
[2021-09-05] MEDS: PANTOPRAZOLE 40 MG TABLET PO SCH (08:14)
[2021-09-05] MEDS: PREGABALIN 75 MG CAP PO SCH ×2 (08:14→22:33)
[2021-09-05] MEDS: ATORVASTATIN 20 MG TAB PO SCH (08:14)
[2021-09-05] MEDS: CHOLECALCIFEROL 25 MCG (1000 IU) TABLET PO SCH (08:14)
[2021-09-05] MEDS: MORPHINE SULFATE ER 15 MG TABLET PO SCH ×2 (08:15→22:32)
[2021-09-05] MEDS: TAMSULOSIN 0.4 MG CAP.ER.24H PO SCH (08:15)
[2021-09-05] MEDS: FENOFIBRATE 160 MG TAB PO SCH (08:15)
[2021-09-05] MEDS: carvediloL 3.125 MG TAB PO SCH ×2 (08:15→18:16)
[2021-09-05] MEDS: DIGOXIN 125 MCG TAB PO SCH (08:15)
[2021-09-05] MEDS: INSULIN ASPART (NovoLOG) 100 UNIT/ML VIAL SQ SCH ×4 (08:15→22:38)
[2021-09-05] MEDS: GLIMEPIRIDE 4 MG TAB PO SCH ×2 (08:15→22:33)
[2021-09-05] MEDS: AMPICILLIN-SULBACTAM 3 GM in SODIUM CHLORIDE 0.9% 100 ML IVPB SCH ×3 (08:16→22:34)
[2021-09-05] MEDS: SENNOSIDES 8.6 MG TAB PO SCH ×2 (08:20→22:38)
[2021-09-05] MEDS: HEPARIN SODIUM,PORCINE/PF 5,000 UNIT/0.5 ML SYRINGE SQ SCH ×2 (09:32→22:34)
[2021-09-05 09:35] LABS: African American GFR (CKD) 62 (>60 ml/min/1.73 sqM); Anion Gap 6 mmol/L; Blood Urea Nitrogen 32 mg/dL (9-20); Carbon Dioxide 31 mmol/L (22-30); Chloride 100 mmol/L (98-107); Glucose 127 mg/dL (74-99); Non-African American GFR(CKD) 54 (>60 ml/min/1.73 sqM); Potassium 4.1 mmol/L (3.5-5.1); Sodium 137 mmol/L (137-145)
[2021-09-05 11:37] LABS: Glucose,Whole Blood 135 mg/dL (75-99)
--- NOTE | 2021-09-05 14:51 | P.PN ---
Subjective Progress Note Date: 09/05/21 This is an 86-year-old male who was recently admitted to [facility] for increasing pain of the right great toe and concern for cellulitis with gangrene. Patient was transferred here to [facility] for further evaluation and initially started on IV Unasyn and will continue with Unasyn and vancomycin and consult infectious disease. Vascular surgery Dr. Mendoza also consulted for possible amputation of the right great toe. Patient states he has been following at the wound care center in [place] who has been treating the foot infection and has progressively gotten worse in transferred here for further evaluation. Patient follows with in the outpatient setting. Patient has a past medical history of heart failure, atrial fibrillation, CAD, arthritis, anxiety, depression diabetes mellitus type 2, I disorder, hypertension, myocardial infarction with stents in December 2020, permanent pacemaker placement in 2016 prostate cancer, and chronic back pain. patient also follows at the pain clinic every 2 months for his chronic back pain and is prescribed MS Contin. Patient denies having any right foot pain but his continued with chronic back pain during this hospitalization. Right great toe is positive for necrotic tissue and eschar noted along with some surrounding ce llulitis with redness and inflammation that is extending up the dorsal aspect of the right foot and stops midfoot. Plan is for amputation of the right great toe with vascular surgery this afternoon. Initial labs show a white blood count of 6.2, hemoglobin is 13.0, platelets are 131, INR is 1.2, sodium is 135, potassium is 3.8, creatinine is 1.62, and BUN is 44, calcium is 9.0, phosphorus is 3.0, magnesium is 2.1, liver functions within normal limits. 09/04/2021 Patient is seen in follow-up status post right great toe amputation with vascular surgery Dr. Mendoza yesterday. Patient is having some back pain and normally maintained on morphine sulfate and will add low-dose [place] for breakthr ough pain. Patient has peripheral neuropathy and normally does not feel much of his feet and states since the surgery he is feeling some surrounding tenderness of the right foot. Surgical dressing is Intact. Blood sugars are mildly elevated and have resumed home medications and will continue sliding scale and add low-dose long-acting and continued Accu-Cheks before meals and at bedtime. 09/05/2021 Patient is seen and evaluated in follow-up this morning with no acute overnight issues. Patient underwent right great toe amputation and is being followed by vascular surgery Dr. Mendoza along with infectious disease. Preliminary cultures showing presumptive staph aureus with gram-negative bacilli and group D enterococcus and patient is maintained on IV antibiotics in the form of Unasyn and vancomycin and will continue. Awaiting for finalized cultures to determine discharge antibiotics. PT/OT to evaluate the patient for possible ECF placement and will discuss further with patient after he discusses with his family members about this as he wants to go home. Labs: Sodium is 137, potassium is 4.1, BUN is 32, creatinine is 1.23, calcium is 9.0 Review of systems: Constitutional: No reports of fatigue, fever, or chills Cardiovascular: No reports of chest pain or palpitations Respiratory: No reports of shortness of breath or cough GI: No reports of nausea, vomiting, or diarrhea : No reports of dysuria or retention Neurovascular: No reports of weakness or numbness All medications have been reviewed Active Medications Acetaminophen (Acetaminophen Tab 325 Mg Tab) 650 mg PO Q6HR PRN PRN Reason: Mild Pain or Fever > 100.5 Hydrocodone Bitart/Acetaminophen (Hydrocodone/Apap 5-325mg 1 Each Tab) 1 each PO Q6HR PRN PRN Reason: Pain Last Admin: 09/04/21 19:11 Dose: 1 each Documented by: Atorvastatin Calcium (Atorvastatin 20 Mg Tab) 20 mg PO DAILY [facility] Last Admin: 09/05/21 08:14 Dose: 20 mg Documented by: Carvedilol (Carvedilol 3.125 Mg Tab) 3.125 mg PO BID-W/MEALS [facility] Last Admin: 09/05/21 08:15 Dose: 3.125 mg Documented by: Cholecalciferol (Cholecalciferol 25 Mcg (1000 Iu) Tablet) 25 mcg PO DAILY [facility] Last Admin: 09/05/21 08:14 Dose: 25 mcg Documented by: Digoxin (Digoxin 125 Mcg Tab) 125 mcg PO DAILY [facility] Last Admin: 09/05/21 08:15 Dose: 125 mcg Documented by: Fenofibrate (Fenofibrate 160 Mg Tab) 160 mg PO DAILY [facility] Last Admin: 09/05/21 08:15 Dose: 160 mg Documented by: Glimepiride (Glimepiride 4 Mg Tab) 4 mg PO BID [facility] Last Admin: 09/05/21 08:15 Dose: 4 mg Documented by: Heparin Sodium (Porcine) (Heparin Sodium,Porcine/Pf 5,000 Unit/0.5 Ml Syringe) 5,000 unit SQ Q12HR [facility] Last Admin: 09/05/21 09:32 Dose: 5,000 unit Documented by: Vancomycin HCl 1,500 mg/ (Sodium Chloride) 250 mls @ 125 mls/hr IVPB Q24H [facility] Last Admin: 09/04/21 20:36 Dose: 125 mls/hr Documented by: Ampicillin Sodium/Sulbactam (Sodium 3 gm/ Sodium Chloride) 100 mls @ 200 mls/hr IVPB Q6H [facility] Insulin Aspart (Insulin Aspart (Novolog) 100 Unit/Ml Vial) 0 unit SQ ACHS [facility]; Protocol Last Admin: 09/05/21 13:09 Dose: 1 unit Documented by: Insulin Detemir (Insulin Detemir (Levemir) 100 Unit/Ml Syr) 15 unit SQ HS [facility] Last Admin: 09/04/21 20:37 Dose: 15 unit Documented by: Melatonin (Melatonin 3 Mg Tablet) 3 mg PO HS PRN PRN Reason: Insomnia Miscellaneous Information (Vancomycin Trough Due 1 Each Misc) 0 each MISCELLANE DIRECTED ONE Stop: 09/06/21 22:01 Morphine Sulfate (Morphine Sulfate Er 15 Mg Tablet) 15 mg PO BID [facility]; Protocol Last Admin: 09/05/21 08:15 Dose: 15 mg Documented by: Naloxone HCl (Naloxone 0.4 Mg/Ml 1 Ml Vial) 0.2 mg IV Q2M PRN PRN Reason: Opioid Reversal Ondansetron HCl (Ondansetron 4 Mg/2 Ml Vial) 4 mg IVP Q8HR PRN PRN Reason: Nausea And Vomiting Pantoprazole Sodium (Pantoprazole 40 Mg Tablet) 40 mg PO AC-BRKFST [facility] Last Admin: 09/05/21 08:14 Dose: 40 mg Documented by: Pregabalin (Pregabalin 75 Mg Cap) 75 mg PO BID [facility] Last Admin: 09/05/21 08:14 Dose: 75 mg Documented by: Senna (Sennosides 8.6 Mg Tab) 8.6 mg PO BID [facility] Last Admin: 09/05/21 08:20 Dose: Not Given Documented by: Tamsulosin HCl (Tamsulosin 0.4 Mg Cap.Er.24h) 0.4 mg PO DAILY [facility] Last Admin: 09/05/21 08:15 Dose: 0.4 mg Documented by: Trazodone HCl (Trazodone Hcl 50 Mg Tab) 50 mg PO HS [facility] Last Admin: 09/04/21 20:36 Dose: 50 mg Documented by: Physical exam: Gen: This is a 86-year-old male awake, alert and oriented 3, well-developed, well-nourished. Currently sitting up in the bed HEENT: Head is atraumatic, normocephalic. Pupils equal, round. Sclerae is anicteric. NECK: Supple. No JVD. No lymphadenopathy. No thyromegaly. LUNGS: Clear to auscultation. No wheezes or rhonchi. No intercostal retractions. HEART: S1, S2 are muffled ABDOMEN: Soft. Bowel sounds are present. No masses. No tenderness. EXTREMITIES: Right foot status post right great toe amputation and surgical dressing is dry and intact. No calf tenderness. NEUROLOGICAL: Patient is awake, alert and oriented x3. Cranial nerves 2 through 12 are grossly intact. Assessment: Right great toe gangrene with surrounding cellulitis Status post right great toe amputation Diabetes mellitus type 2, uncontrolled with hyperglycemia Acute kidney injury most likely prerenal, improving Possible osteomyelitis of the right toe Chronic low back pain Chronic heart failure, EF unknown Hypertension Peripheral neuropathy Permanent pacemaker placement Past medical history of myocardial infarction with stent placement History of anxiety/depression GI prophylaxis: Protonix DVT prophylaxis: Subcutaneous heparin No code Plan: Recommend to continue with current medications and patient is status post right great toe amputation. Infectious disease following and patient is maintained on IV Unasyn along with IV vancomycin. Preliminary cultures showing presumptive staph aureus with gram-negative bacilli and group D enterococcus and awaiting finalized cultures. Vascular surgery Dr. Mendoza following as well. Plan is for dressing changes today. We'll have PT/OT evaluate the patient for possible ECF placement. Will discuss further with infectious disease about discharge planning and possible IV antibiotic therapy. Patient states he would like to go home on discharge and will discuss further with case management and social work. Objective - Vital Signs Vital signs: Vital Signs Temp 98.5 F 09/05/21 07:21 Pulse 82 09/05/21 07:21 Resp 16 09/05/21 07:21 BP 104/66 09/05/21 07:21 Pulse Ox 93 L 09/05/21 05:00 Intake & Output 09/04/21 09/05/21 09/05/21 18:59 06:59 18:59 Intake Total 700 Output Total 550 Balance 150 Intake: Intake, IV Titration 100 Amount Ampicillin-Sulbactam 3 gm 100 In Sodium Chloride 0.9% 100 ml @ 200 mls/hr IVPB Q12HR [facility] Rx#:[id number] Oral 600 Output: Urine 550 Other: Voiding Method Toilet Toilet Urinal Urinal # Voids 3 3 # Bowel Movements 1 - Labs CBC & Chem 7: 09/04/21 09:09 09/05/21 08:44 Labs: Abnormal Lab Results - Last 24 Hours (Table) 09/04/21 09/04/21 09/04/21 Range/Units 09:09 09:09 12:31 Plt Count 140 L (150-450) k/uL Lymphocytes # 0.8 L (1.0-4.8) k/uL Sodium 136 L (137-145) mmol/L BUN 37 H (9-20) mg/dL Creatinine 1.42 H (0.66-1.25) mg/dL Glucose 208 H (74-99) mg/dL POC Glucose (mg/dL) 333 H (75-99) mg/dL 09/04/21 09/04/21 09/05/21 Range/Units 17:43 20:32 07:09 Plt Count (150-450) k/uL Lymphocytes # (1.0-4.8) k/uL Sodium (137-145) mmol/L BUN (9-20) mg/dL Creatinine (0.66-1.25) mg/dL Glucose (74-99) mg/dL POC Glucose (mg/dL) 211 H 184 H 156 H (75-99) mg/dL Microbiology - Last 24 Hours (Table) 09/03/21 15:30 Gram Stain - Preliminary Toe - Right First Tissue Culture - Preliminary Presumptive Staph aureus Gram Neg Bacilli Group D Enterococcus 09/03/21 15:30 Gram Stain - Preliminary Toe - Right First Wound Culture - Preliminary Presumptive Staph aureus Gram Neg Bacilli 09/03/21 15:30 Gram Stain - Preliminary Toe - Right First Wound Culture - Preliminary Presumptive Staph aureus Gram Neg Bacilli 09/02/21 19:07 Blood Culture - Preliminary Blood No Growth after 48 hours
[2021-09-05] MEDS: HYDROcodone/APAP 5-325MG 1 EACH TAB PO PRN (15:57)
--- NOTE | 2021-09-05 16:18 | PN ---
PROGRESS NOTE Preoperative diagnosis was gangrene of the big toe. He underwent amputation of the big toe with primary closure. Today we have changed the dressing. There is slight redness noted along the incision site. I advised the patient to be nonweightbearing. Culture came back with presumptive Staph aureus and Gram-negative bacilli. Patient is on IV antibiotic, under the care of Infectious Disease. Plan is nonweightbearing. Continue with IV antibiotic and we will change the dressing tomorrow. MMODL / IJN: [id number] /
[2021-09-05 17:08] LABS: Glucose,Whole Blood 288 mg/dL (75-99)
[2021-09-05 20:16] LABS: Glucose,Whole Blood 232 mg/dL (75-99)
[2021-09-05] MEDS: traZODone HCL 50 MG TAB PO SCH (22:36)
[2021-09-05] MEDS: INSULIN DETEMIR (LEVEMIR) 100 UNIT/ML SYR SQ SCH (22:39)
--- NOTE | 2021-09-05 22:55 | PN ---
PROGRESS NOTE DATE OF SERVICE: 09/05/2021 REASON FOR FOLLOWUP: Right big toe osteomyelitis. INTERVAL HISTORY: The patient is afebrile. He is breathing comfortably. Denies having any chest pain or shortness of breath or cough. No vomiting. No abdominal pain or diarrhea. PHYSICAL EXAMINATION: Blood pressure 114/55, pulse of 93, temperature 98.1. He is 94% on room air. General description is an elderly male lying in bed in no distress. RESPIRATORY SYSTEM: Unlabored breathing. Clear to auscultation anteriorly. HEART: S1, S2. Regular rate and rhythm. ABDOMEN: Soft. No tenderness. Right big toe amputation site wound is currently dressed. No obvious drainage on the dressing. LABS: BUN of 32. Creatinine is 1.23. Local culture with Staph aureus, Enterococcus. DIAGNOSTIC IMPRESSION AND PLAN: Patient with right big toe gangrene, status post right big toe amputation. Culture showing Staph aureus with sensitivities pending. Initially enterococcus. Patient is covered with Unasyn and vancomycin; to be continued while waiting for the culture to finalize. Monitor clinical course closely. MMODL / IJN: [id number] /
[2021-09-06] MEDS: VANCOMYCIN 1,500 MG in SODIUM CHLORIDE 0.9% 250 ML IVPB SCH (00:01)
[2021-09-06] MEDS: AMPICILLIN-SULBACTAM 3 GM in SODIUM CHLORIDE 0.9% 100 ML IVPB SCH ×4 (03:12→21:05)
[2021-09-06 07:28] LABS: African American GFR (CKD) 64 (>60 ml/min/1.73 sqM); Anion Gap 7 mmol/L; Blood Urea Nitrogen 29 mg/dL (9-20); Calcium 8.8 mg/dL (8.4-10.2); Carbon Dioxide 26 mmol/L (22-30); Chloride 105 mmol/L (98-107); Glucose 87 mg/dL (74-99); Non-African American GFR(CKD) 55 (>60 ml/min/1.73 sqM); Potassium 4.3 mmol/L (3.5-5.1); Sodium 138 mmol/L (137-145)
[2021-09-06] MEDS: INSULIN ASPART (NovoLOG) 100 UNIT/ML VIAL SQ SCH ×4 (07:47→21:03)
[2021-09-06 07:55] LABS: Glucose,Whole Blood 83 mg/dL (75-99)
[2021-09-06] MEDS: SENNOSIDES 8.6 MG TAB PO SCH ×2 (08:41→21:20)
[2021-09-06] MEDS: PREGABALIN 75 MG CAP PO SCH ×2 (08:42→21:20)
[2021-09-06] MEDS: ATORVASTATIN 20 MG TAB PO SCH (08:42)
[2021-09-06] MEDS: MORPHINE SULFATE ER 15 MG TABLET PO SCH ×2 (08:42→21:20)
[2021-09-06] MEDS: carvediloL 3.125 MG TAB PO SCH ×2 (08:42→17:50)
[2021-09-06] MEDS: FENOFIBRATE 160 MG TAB PO SCH (08:43)
[2021-09-06] MEDS: TAMSULOSIN 0.4 MG CAP.ER.24H PO SCH (08:43)
[2021-09-06] MEDS: PANTOPRAZOLE 40 MG TABLET PO SCH (08:43)
[2021-09-06] MEDS: GLIMEPIRIDE 4 MG TAB PO SCH ×2 (08:44→21:21)
[2021-09-06] MEDS: DIGOXIN 125 MCG TAB PO SCH (08:45)
[2021-09-06] MEDS: CHOLECALCIFEROL 25 MCG (1000 IU) TABLET PO SCH (08:46)
[2021-09-06] MEDS: HEPARIN SODIUM,PORCINE/PF 5,000 UNIT/0.5 ML SYRINGE SQ SCH ×2 (09:13→21:04)
[2021-09-06] MEDS: CIPROFLOXACIN HCL 500 MG TAB PO SCH ×2 (11:40→21:21)
[2021-09-06 11:43] LABS: Glucose,Whole Blood 124 mg/dL (75-99)
[2021-09-06] MEDS: HYDROcodone/APAP 5-325MG 1 EACH TAB PO PRN (11:43)
--- NOTE | 2021-09-06 13:59 | P.PN ---
Subjective Progress Note Date: 09/06/21 This is an 86-year-old male who was recently admitted to [facility] for increasing pain of the right great toe and concern for cellulitis with gangrene. Patient was transferred here to [facility] for further evaluation and initially started on IV Unasyn and will continue with Unasyn and vancomycin and consult infectious disease. Vascular surgery Dr. Mendoza also consulted for possible amputation of the right great toe. Patient states he has been following at the wound care center in [place] who has been treating the foot infection and has progressively gotten worse in transferred here for further evaluation. Patient follows with in the outpatient setting. Patient has a past medical history of heart failure, atrial fibrillation, CAD, arthritis, anxiety, depression diabetes mellitus type 2, I disorder, hypertension, myocardial infarction with stents in December 2020, permanent pacemaker placement in 2016 prostate cancer, and chronic back pain. patient also follows at the pain clinic every 2 months for his chronic back pain and is prescribed MS Contin. Patient denies having any right foot pain but his continued with chronic back pain during this hospitalization. Right great toe is positive for necrotic tissue and eschar noted along with some surrounding ce llulitis with redness and inflammation that is extending up the dorsal aspect of the right foot and stops midfoot. Plan is for amputation of the right great toe with vascular surgery this afternoon. Initial labs show a white blood count of 6.2, hemoglobin is 13.0, platelets are 131, INR is 1.2, sodium is 135, potassium is 3.8, creatinine is 1.62, and BUN is 44, calcium is 9.0, phosphorus is 3.0, magnesium is 2.1, liver functions within normal limits. 09/04/2021 Patient is seen in follow-up status post right great toe amputation with vascular surgery Dr. Mendoza yesterday. Patient is having some back pain and normally maintained on morphine sulfate and will add low-dose [place] for breakthr ough pain. Patient has peripheral neuropathy and normally does not feel much of his feet and states since the surgery he is feeling some surrounding tenderness of the right foot. Surgical dressing is Intact. Blood sugars are mildly elevated and have resumed home medications and will continue sliding scale and add low-dose long-acting and continued Accu-Cheks before meals and at bedtime. 09/05/2021 Patient is seen and evaluated in follow-up this morning with no acute overnight issues. Patient underwent right great toe amputation and is being followed by vascular surgery Dr. Mendoza along with infectious disease. Preliminary cultures showing presumptive staph aureus with gram-negative bacilli and group D enterococcus and patient is maintained on IV antibiotics in the form of Unasyn and vancomycin and will continue. Awaiting for finalized cultures to determine discharge antibiotics. PT/OT to evaluate the patient for possible ECF placement and will discuss further with patient after he discusses with his family members about this as he wants to go home. 09/06/2021 Patient is seen in follow-up this morning continued on IV antibiotics in the form of Unasyn with infectious disease following closely and vancomycin has been discontinued. Patient also continued on oral Cipro and awaiting finalized the tissue cultures. Presumptive staph aureus and Aeromonas hydrophilia preliminary showing on the wound culture and tissue culture showing presumptive staph aureus with group D enterococcus and gram-negative bacilli. Dr. Mendoza also following and planning on dressing changes today. Vital signs within stable and blood sugars have been variable until today lower and will continue with sliding scale along with long-acting and continue Accu-Cheks before meals and at bedtime. Patient denies any chest pain, shortness of breath, or palpitations. Patient is having low-grade intermittent fevers of 99.0-99.4. Patient denies any nausea or vomiting and tolerating diet. Labs: Sodium is 138, potassium is 4.3, BUN is 29, creatinine is 1.20, calcium is 8.8 Review of systems: Constitutional: No reports of fatigue, fever, or chills Cardiovascular: No reports of chest pain or palpitations Respiratory: No reports of shortness of breath or cough GI: No reports of nausea, vomiting, or diarrhea : No reports of dysuria or retention Neurovascular: No reports of weakness or numbness All medications have been reviewed Active Medications Acetaminophen (Acetaminophen Tab 325 Mg Tab) 650 mg PO Q6HR PRN PRN Reason: Mild Pain or Fever > 100.5 Hydrocodone Bitart/Acetaminophen (Hydrocodone/Apap 5-325mg 1 Each Tab) 1 each PO Q6HR PRN PRN Reason: Pain Last Admin: 09/06/21 11:43 Dose: 1 each Documented by: Atorvastatin Calcium (Atorvastatin 20 Mg Tab) 20 mg PO DAILY FREDO Last Admin: 09/06/21 08:42 Dose: 20 mg Documented by: Carvedilol (Carvedilol 3.125 Mg Tab) 3.125 mg PO BID-W/MEALS ON LICENSE OF [facility] Last Admin: 09/06/21 08:42 Dose: 3.125 mg Documented by: Cholecalciferol (Cholecalciferol 25 Mcg (1000 Iu) Tablet) 25 mcg PO DAILY ON LICENSE OF [facility] Last Admin: 09/06/21 08:46 Dose: 25 mcg Documented by: Ciprofloxacin (Ciprofloxacin Hcl 500 Mg Tab) 500 mg PO BID ON LICENSE OF [facility] Last Admin: 09/06/21 11:40 Dose: 500 mg Documented by: Digoxin (Digoxin 125 Mcg Tab) 125 mcg PO DAILY ON LICENSE OF [facility] Last Admin: 09/06/21 08:45 Dose: 125 mcg Documented by: Fenofibrate (Fenofibrate 160 Mg Tab) 160 mg PO DAILY ON LICENSE OF [facility] Last Admin: 09/06/21 08:43 Dose: 160 mg Documented by: Glimepiride (Glimepiride 4 Mg Tab) 4 mg PO BID ON LICENSE OF [facility] Last Admin: 09/06/21 08:44 Dose: 4 mg Documented by: Heparin Sodium (Porcine) (Heparin Sodium,Porcine/Pf 5,000 Unit/0.5 Ml Syringe) 5,000 unit SQ Q12HR ON LICENSE OF [facility] Last Admin: 09/06/21 09:13 Dose: 5,000 unit Documented by: Ampicillin Sodium/Sulbactam (Sodium 3 gm/ Sodium Chloride) 100 mls @ 200 mls/hr IVPB Q6H ON LICENSE OF [facility] Last Admin: 09/06/21 13:52 Dose: 200 mls/hr Documented by: Insulin Aspart (Insulin Aspart (Novolog) 100 Unit/Ml Vial) 0 unit SQ ACHS ON LICENSE OF [facility]; Protocol Last Admin: 09/06/21 12:27 Dose: Not Given Documented by: Insulin Detemir (Insulin Detemir (Levemir) 100 Unit/Ml Syr) 15 unit SQ HS ON LICENSE OF [facility] Last Admin: 09/05/21 22:39 Dose: 15 unit Documented by: Melatonin (Melatonin 3 Mg Tablet) 3 mg PO HS PRN PRN Reason: Insomnia Morphine Sulfate (Morphine Sulfate Er 15 Mg Tablet) 15 mg PO BID ON LICENSE OF [facility]; Protocol Last Admin: 09/06/21 08:42 Dose: 15 mg Documented by: Naloxone HCl (Naloxone 0.4 Mg/Ml 1 Ml Vial) 0.2 mg IV Q2M PRN PRN Reason: Opioid Reversal Ondansetron HCl (Ondansetron 4 Mg/2 Ml Vial) 4 mg IVP Q8HR PRN PRN Reason: Nausea And Vomiting Pantoprazole Sodium (Pantoprazole 40 Mg Tablet) 40 mg PO AC-BRKFST ON LICENSE OF [facility] Last Admin: 09/06/21 08:43 Dose: 40 mg Documented by: Pregabalin (Pregabalin 75 Mg Cap) 75 mg PO BID ON LICENSE OF [facility] Last Admin: 09/06/21 08:42 Dose: 75 mg Documented by: Senna (Sennosides 8.6 Mg Tab) 8.6 mg PO BID ON LICENSE OF [facility] Last Admin: 09/06/21 08:41 Dose: 8.6 mg Documented by: Tamsulosin HCl (Tamsulosin 0.4 Mg Cap.Er.24h) 0.4 mg PO DAILY ON LICENSE OF [facility] Last Admin: 09/06/21 08:43 Dose: 0.4 mg Documented by: Trazodone HCl (Trazodone Hcl 50 Mg Tab) 50 mg PO HS ON LICENSE OF [facility] Last Admin: 09/05/21 22:36 Dose: 50 mg Documented by: Physical exam: Gen: This is a 86-year-old male awake, alert and oriented 3, well-developed, well-nourished. Currently sitting up in the bed HEENT: Head is atraumatic, normocephalic. Pupils equal, round. Sclerae is anicteric. NECK: Supple. No JVD. No lymphadenopathy. No thyromegaly. LUNGS: Clear to auscultation. No wheezes or rhonchi. No intercostal retractions. HEART: S1, S2 are muffled ABDOMEN: Soft. Bowel sounds are present. No masses. No tenderness. EXTREMITIES: Right foot status post right great toe amputation and surgical dressing is dry and intact. No calf tenderness. NEUROLOGICAL: Patient is awake, alert and oriented x3. Cranial nerves 2 through 12 are grossly intact. Assessment: Right great toe gangrene with surrounding cellulitis Status post right great toe amputation Diabetes mellitus type 2, uncontrolled with hyperglycemia Acute kidney injury most likely prerenal, improving Possible osteomyelitis of the right toe Chronic low back pain Chronic heart failure, EF unknown Hypertension Peripheral neuropathy Permanent pacemaker placement Past medical history of myocardial infarction with stent placement History of anxiety/depression GI prophylaxis: Protonix DVT prophylaxis: Subcutaneous heparin No code Plan: Recommend to continue with current medications and patient is status post right great toe amputation. Infectious disease following and patient is maintained on IV Unasyn along with oral Cipro while awaiting for finalized cultures. Prelim inary cultures showing presumptive staph aureus with gram-negative bacilli and group D enterococcus and Aeromonas hydrophila and awaiting finalized cultures. Vascular surgery Dr. Mendoza following as well. Plan is for dressing changes today. We'll have PT/OT evaluate the patient for possible ECF placement. Patient is adamant about going home and is agreeable with home care and does not want to go to rehab. Patient needs to remain nonweightbearing on that right lower extremity. Will discuss further with infectious disease about discharge planning and possible IV antibiotic therapy once cultures have finalized. Patient states he would like to go home on discharge and will discuss further with case management and social work. Objective - Vital Signs Vital signs: Vital Signs Temp 99.0 F 09/06/21 07:33 Pulse 82 09/06/21 07:33 Resp 14 09/06/21 07:33 BP 106/68 09/06/21 07:33 Pulse Ox 92 L 09/06/21 04:59 Intake & Output 09/05/21 09/06/21 09/06/21 18:59 06:59 18:59 Intake Total 300 590 Output Total 250 600 Balance 50 -10 Weight 86 kg Intake: Intake, IV Titration 200 Amount Ampicillin-Sulbactam 3 gm 200 In Sodium Chloride 0.9% 100 ml @ 200 mls/hr IVPB Q6H ON LICENSE OF [facility] Rx#:[id number] Oral 100 590 Output: Urine 250 600 Other: Voiding Method Toilet Urinal Urinal - Labs CBC & Chem 7: 09/04/21 09:09 09/06/21 06:27 Labs: Abnormal Lab Results - Last 24 Hours (Table) 09/05/21 09/05/21 09/05/21 Range/Units 08:44 11:36 17:07 Carbon Dioxide 31 H (22-30) mmol/L BUN 32 H (9-20) mg/dL Glucose 127 H (74-99) mg/dL POC Glucose (mg/dL) 135 H 288 H (75-99) mg/dL 09/05/21 09/06/21 Range/Units 20:03 06:27 Carbon Dioxide (22-30) mmol/L BUN 29 H (9-20) mg/dL Glucose (74-99) mg/dL POC Glucose (mg/dL) 232 H (75-99) mg/dL Microbiology - Last 24 Hours (Table) 09/03/21 15:30 Anaerobic Culture - Preliminary Toe - Right First 09/03/21 15:30 Anaerobic Culture - Preliminary Toe - Right First 09/02/21 19:07 Blood Culture - Preliminary Blood No Growth after 72 hours 09/03/21 15:30 Gram Stain - Preliminary Toe - Right First Tissue Culture - Preliminary Presumptive Staph aureus Aeromonas hydrophila Group D Enterococcus Gram Neg Bacilli 09/03/21 15:30 Gram Stain - Preliminary Toe - Right First Wound Culture - Preliminary Presumptive Staph aureus Aeromonas hydrophila 09/03/21 15:30 Gram Stain - Preliminary Toe - Right First Wound Culture - Preliminary Presumptive Staph aureus Aeromonas hydrophila
--- NOTE | 2021-09-06 15:17 | PN ---
PROGRESS NOTE 86 -year-old gentleman who had a history of gangrene of the right foot big toe. Patient went for amputation of the right foot big toe at the metatarsophalangeal joint. We did the primary closure. The patient culture came back as Staph aureus under care of infectious disease with IV antibiotic. Today I have changed the dressing. I noted in the middle of incision there is a small serous drainage noted. If continues then we may remove a few of the stitches and we will watch very closely. MMODL / IJN: [id number] /
[2021-09-06 17:20] LABS: Glucose,Whole Blood 183 mg/dL (75-99)
--- NOTE | 2021-09-06 17:43 | PN ---
PROGRESS NOTE DATE OF SERVICE: 09/06/2021 REASON FOR FOLLOWUP: Right big toe gangrene. INTERVAL HISTORY: The patient is afebrile. The patient is breathing comfortably. Denies any chest pain. No shortness or cough. No abdominal pain or pain to the lower extremity. PHYSICAL EXAMINATION: Blood pressure 114/71 with a pulse of 81, temperature of 97.9, pulse ox 95% on room air. General description is an elderly male lying in bed in no distress. Respiratory system: Unlabored breathing, clear to auscultation anteriorly. Heart S1, S2. Regular rate and rhythm. Abdomen soft, no tenderness. Right foot amputation site currently dressed up. No obvious drainage on the dressing. LABS: BUN 29, creatinine is 1.20. Cultures have not been finalized. DIAGNOSTIC IMPRESSION AND PLAN: Patient with right big toe gangrene status post amputation. Culture with multiple pathogens including and Staph aureus, . The patient covered with Unasyn, Cipro has been added and vancomycin will be discontinued, planning for oral antibiotic on discharge. Continue supportive care. MMODL / IJN: [id number] /
[2021-09-06 20:36] LABS: Glucose,Whole Blood 166 mg/dL (75-99)
[2021-09-06] MEDS: INSULIN DETEMIR (LEVEMIR) 100 UNIT/ML SYR SQ SCH (21:04)
[2021-09-06] MEDS: traZODone HCL 50 MG TAB PO SCH (21:21)
[2021-09-06] MEDS ORDERED: VANCOMYCIN TROUGH DUE 1 EACH MISC MISCELLANE ONE (22:00)
[2021-09-07] MEDS: AMPICILLIN-SULBACTAM 3 GM in SODIUM CHLORIDE 0.9% 100 ML IVPB SCH ×5 (01:36→20:55)
[2021-09-07 08:21] LABS: Glucose,Whole Blood 53 mg/dL (75-99)
[2021-09-07 08:50] LABS: Glucose,Whole Blood 81 mg/dL (75-99)
[2021-09-07] MEDS: carvediloL 3.125 MG TAB PO SCH ×2 (09:06→17:41)
[2021-09-07] MEDS: INSULIN ASPART (NovoLOG) 100 UNIT/ML VIAL SQ SCH ×4 (09:06→20:54)
[2021-09-07] MEDS: ATORVASTATIN 20 MG TAB PO SCH (09:07)
[2021-09-07] MEDS: PANTOPRAZOLE 40 MG TABLET PO SCH (09:07)
[2021-09-07] MEDS: CIPROFLOXACIN HCL 500 MG TAB PO SCH ×2 (09:07→20:54)
[2021-09-07] MEDS: CHOLECALCIFEROL 25 MCG (1000 IU) TABLET PO SCH (09:08)
[2021-09-07] MEDS: GLIMEPIRIDE 4 MG TAB PO SCH ×2 (09:08→20:54)
[2021-09-07] MEDS: MORPHINE SULFATE ER 15 MG TABLET PO SCH ×2 (09:08→20:54)
[2021-09-07] MEDS: HEPARIN SODIUM,PORCINE/PF 5,000 UNIT/0.5 ML SYRINGE SQ SCH ×2 (09:08→20:54)
[2021-09-07] MEDS: FENOFIBRATE 160 MG TAB PO SCH (09:08)
[2021-09-07] MEDS: DIGOXIN 125 MCG TAB PO SCH (09:08)
[2021-09-07] MEDS: TAMSULOSIN 0.4 MG CAP.ER.24H PO SCH (09:10)
[2021-09-07] MEDS: SENNOSIDES 8.6 MG TAB PO SCH ×2 (09:10→20:54)
[2021-09-07] MEDS: PREGABALIN 75 MG CAP PO SCH ×2 (09:10→20:54)
--- NOTE | 2021-09-07 11:27 | PN ---
PROGRESS NOTE This is an 86 -year-old gentleman who came with right foot big toe gangrene. Patient went with amputation of the right foot big toe. Culture came as Staph aureus. Patient is on IV antibiotic. Plantar aspect of the incision there is some serous drainage noted. We removed the few stitches from the plantar aspect and took some deep culture. Wound was irrigated with saline and we placed Aquacel silver and continue with IV antibiotic. We will change the dressing on Thursday. MMODL / IJN: [id number] /
[2021-09-07 13:19] LABS: Glucose,Whole Blood 189 mg/dL (75-99)
[2021-09-07 17:20] LABS: Glucose,Whole Blood 185 mg/dL (75-99)
[2021-09-07] MEDS: HYDROcodone/APAP 5-325MG 1 EACH TAB PO PRN (17:43)
--- NOTE | 2021-09-07 19:18 | PN ---
PROGRESS NOTE DATE OF SERVICE: 09/07/2021 REASON FOR FOLLOWUP: Right big toe gangrene with diabetic foot infection. INTERVAL HISTORY: The patient is afebrile. The patient is currently breathing comfortably. Pain to the right foot is currently controlled. No chest pain, shortness of breath or cough. No abdominal pain. No diarrhea. PHYSICAL EXAMINATION: Blood pressure is 119/70 with a pulse of 80, temperature 98. He is 94% on room air. General description is an elderly male up in the chair in no distress. Respiratory system: Unlabored breathing, clear to auscultation anteriorly. Heart S1, S2. Regular rate and rhythm. Abdomen soft, no tenderness. LABS: Culture has been positive for multiple pathogens including MSSA, Enterobacter and ( ) patient with right big toe gangrene status post amputation. Cultures with multiple pathogens. Patient covered with Unasyn, cefazolin to continue. Hopefully transition to oral antibiotic on discharge. Family at the bedside, multiple questions were answered. MMODL / IJN: [id number] /
[2021-09-07 20:10] LABS: Glucose,Whole Blood 281 mg/dL (75-99)
[2021-09-07] MEDS: INSULIN DETEMIR (LEVEMIR) 100 UNIT/ML SYR SQ SCH (20:59)
[2021-09-07] MEDS: traZODone HCL 50 MG TAB PO SCH (21:02)
[2021-09-08] MEDS: HYDROcodone/APAP 5-325MG 1 EACH TAB PO PRN ×2 (03:56→14:09)
[2021-09-08] MEDS: AMPICILLIN-SULBACTAM 3 GM in SODIUM CHLORIDE 0.9% 100 ML IVPB SCH ×4 (03:56→20:51)
[2021-09-08 07:13] LABS: Basophils % (A) 0 %; Eosinophils # (A) 0.3 k/uL (0-0.7); Eosinophils % (A) 4 %; HGB 11.5 gm/dL (13.0-17.5); Lymphocytes # (A) 0.8 k/uL (1.0-4.8); Lymphocytes % (A) 11 %; MCHC 31.1 g/dL (31.0-37.0); MCV 86.6 fL (80.0-100.0); Mean Platelet Volume 8.4; Monocytes # (A) 0.5 k/uL (0-1.0); Monocytes % (A) 7 %; Neutrophils # (A) 5.4 k/uL (1.3-7.7); Neutrophils % (A) 76 %; Platelet Count 259 k/uL (150-450); RBC 4.28 m/uL (4.30-5.90); RDW 13.9 % (11.5-15.5); WBC 7.1 k/uL (3.8-10.6)
[2021-09-08 07:40] LABS: Glucose,Whole Blood 50 mg/dL (75-99)
[2021-09-08 07:47] LABS: Glucose,Whole Blood 62 mg/dL (75-99)
[2021-09-08] MEDS: INSULIN ASPART (NovoLOG) 100 UNIT/ML VIAL SQ SCH ×4 (07:50→20:52)
[2021-09-08] MEDS: FENOFIBRATE 160 MG TAB PO SCH (08:08)
[2021-09-08 08:09] LABS: Glucose,Whole Blood 104 mg/dL (75-99)
[2021-09-08] MEDS: ATORVASTATIN 20 MG TAB PO SCH (08:09)
[2021-09-08] MEDS: carvediloL 3.125 MG TAB PO SCH ×2 (08:09→17:32)
[2021-09-08] MEDS: CIPROFLOXACIN HCL 500 MG TAB PO SCH ×2 (08:09→20:52)
[2021-09-08] MEDS: CHOLECALCIFEROL 25 MCG (1000 IU) TABLET PO SCH (08:09)
[2021-09-08] MEDS: SENNOSIDES 8.6 MG TAB PO SCH ×2 (08:09→20:52)
[2021-09-08] MEDS: TAMSULOSIN 0.4 MG CAP.ER.24H PO SCH (08:09)
[2021-09-08] MEDS: PANTOPRAZOLE 40 MG TABLET PO SCH (08:09)
[2021-09-08] MEDS: DIGOXIN 125 MCG TAB PO SCH (08:09)
[2021-09-08] MEDS: PREGABALIN 75 MG CAP PO SCH ×2 (08:09→20:52)
[2021-09-08] MEDS: GLIMEPIRIDE 4 MG TAB PO SCH ×2 (08:09→20:52)
[2021-09-08] MEDS: MORPHINE SULFATE ER 15 MG TABLET PO SCH ×2 (08:11→20:52)
[2021-09-08] MEDS: HEPARIN SODIUM,PORCINE/PF 5,000 UNIT/0.5 ML SYRINGE SQ SCH ×2 (08:14→20:52)
[2021-09-08 10:55] LABS: African American GFR (CKD) 53.1 (60.0-200.0); Anion Gap 10.1 mmol/L (4.00-12.00); BUN/Creat Ratio 21.43 Ratio (12.00-20.00); Calcium 8.4 mg/dL (8.7-10.3); Carbon Dioxide 21.9 mmol/L (21.6-31.8); Non-African American GFR(CKD) 45.8 (60.0-200.0); Potassium 4.5 mmol/L (3.5-5.5)
[2021-09-08 12:24] LABS: Glucose,Whole Blood 109 mg/dL (75-99)
[2021-09-08 17:26] LABS: Glucose,Whole Blood 193 mg/dL (75-99)
[2021-09-08 20:39] LABS: Glucose,Whole Blood 233 mg/dL (75-99)
[2021-09-08] MEDS: traZODone HCL 50 MG TAB PO SCH (20:52)
--- NOTE | 2021-09-08 20:55 | PN ---
PROGRESS NOTE DATE OF SERVICE: 09/08/2021. REASON FOR FOLLOWUP: Right big toe gangrene. INTERVAL HISTORY: The patient is afebrile. The patient is breathing comfortably. Pain in the right foot is currently controlled. Has been complaining of pain, mostly in the lower back area, which is chronic for the patient. No chest pain, shortness of breath or cough. PHYSICAL EXAMINATION: Blood pressure 130/79 with a pulse of 83, temperature 98.6. He is 99% on room air. General description is an elderly male lying in bed in no distress. Respiratory system: Unlabored breathing, decreased breath sounds at the base. No wheeze. Heart S1, S2. Regular rate and rhythm. Abdomen soft, no tenderness. Right foot is currently dressed. Minimal drainage on the dressing. LABS: No new labs have been obtained today. DIAGNOSTIC IMPRESSION AND PLAN: Patient with right big toe gangrene, status post amputation. Cultures with multiple pathogens. Patient is covered with Unasyn and Cipro tomorrow dressing change by the surgeon to determine plan and the antibiotic therapy on discharge. Continue with supportive care. MMODL / IJN: [id number] /
[2021-09-08] MEDS ORDERED: INSULIN DETEMIR (LEVEMIR) 100 UNIT/ML SYR SQ SCH (21:00)
--- NOTE | 2021-09-08 23:22 | P.PN ---
Subjective Progress Note Date: 09/07/21 Principal diagnosis: Right great toe gangrene with diabetic foot infection. This is an 86-year-old male who was recently admitted to [facility] for increasing pain of the right great toe and concern for cellulitis with gangrene. Patient was transferred here to [facility] for further evaluation and initially started on IV Unasyn and will continue with Unasyn and vancomycin and consult infectious disease. Vascular surgery Dr. Mendoza also consulted for possible amputation of the right great toe. Patient states he has been following at the wound care center in [place] who has been treating the foot infection and has progressively gotten worse in transferred here for further evaluation. Patient follows with in the outpatient setting. Darshan thomas has a past medical history of heart failure, atrial fibrillation, CAD, arthritis, anxiety, depression diabetes mellitus type 2, I disorder, hypertension, myocardial infarction with stents in December 2020, permanent pacemaker placement in 2017 prostate cancer, and chronic back pain. patient also follows at the pain clinic every 2 months for his chronic back pain and is prescribed MS Contin. Patient denies having any right foot pain but his continued with chronic back pain during this hospitalization. Right great toe is positive for necrotic tissue and eschar noted along with some surrounding cellulitis with redness and inflammation that is extending up the dorsal aspect of the right foot and stops midfoot. Plan is for amputation of the right great toe with vascular surgery this afternoon. Initial labs show a white blood count of 6.2, hemoglobin is 13.0, platelets are 131, INR is 1.2, sodium is 135, potassium is 3.8, creatinine is 1.62, and BUN is 44, calcium is 9.0, phosphorus is 3.0, magnesium is 2.1, liver functions within normal limits. 09/04/2021 Patient is seen in follow-up status post right great toe amputation with vascular surgery Dr. Mendoza yesterday. Patient is having some back pain and normally maintained on morphine sulfate and will add low-dose [place] for breakt hrough pain. Patient has peripheral neuropathy and normally does not feel much of his feet and states since the surgery he is feeling some surrounding tenderness of the right foot. Surgical dressing is Intact. Blood sugars are mildly elevated and have resumed home medications and will continue sliding scale and add low-dose long-acting and continued Accu-Cheks before meals and at bedtime. 09/05/2021 Patient is seen and evaluated in follow-up this morning with no acute overnight issues. Patient underwent right great toe amputation and is being followed by vascular surgery Dr. Mendoza along with infectious disease. Preliminary cultures showing presumptive staph aureus with gram-negative bacilli and group D enterococcus and patient is maintained on IV antibiotics in the form of Unasyn a nd vancomycin and will continue. Awaiting for finalized cultures to determine discharge antibiotics. PT/OT to evaluate the patient for possible ECF placement and will discuss further with patient after he discusses with his family members about this as he wants to go home. 09/06/2021 Patient is seen in follow-up this morning continued on IV antibiotics in the form of Unasyn with infectious disease following closely and vancomycin has been discontinued. Patient also continued on oral Cipro and awaiting finalized the tissue cultures. Presumptive staph aureus and Aeromonas hydrophilia preliminary showing on the wound culture and tissue culture showing presumptive staph aureus with group D enterococcus and gram-negative bacilli. Dr. Mendoza also following and planning on dressing changes today. Vital signs within stable and blood sugars have been variable until today lower and will continue with sliding scale along with long-acting and continue Accu-Cheks before meals and at bedtime. Patient denies any chest pain, shortness of breath, or palpitations. Patient is having low-grade intermittent fevers of 99.0-99.4. Patient denies any nausea or vomiting and tolerating diet. Labs: Sodium is 138, potassium is 4.3, BUN is 29, creatinine is 1.20, calcium is 8.8 09/07/2021 Patient is currently resting in the bed. Awake alert and oriented. Continued on antibiotics in the form of Unasyn as per ID recommendations. No complaints of chest pain or shortness breath. Patient is afebrile. Wound cultures showed MSSA and multiple pathogens. Review of systems: Constitutional: No reports of fatigue, fever, or chills Cardiovascular: No reports of chest pain or palpitations Respiratory: No reports of shortness of breath or cough GI: No reports of nausea, vomiting, or diarrhea : No reports of dysuria or retention Neurovascular: No reports of weakness or numbness All medications have been reviewed Objective - Vital Signs Vital signs: Vital Signs Temp 99.0 F 09/07/21 19:35 Pulse 80 09/07/21 19:35 Resp 18 09/07/21 19:35 BP 107/65 09/07/21 19:35 Pulse Ox 94 L 09/07/21 19:35 Intake & Output 09/07/21 09/07/21 09/08/21 06:59 18:59 05:59 Intake Total 590 2820 Output Total 450 200 Balance 140 2820 -200 Weight 93 kg Intake: Intake, IV Titration 200 Amount Ampicillin-Sulbactam 3 gm 200 In Sodium Chloride 0.9% 100 ml @ 200 mls/hr IVPB Q6H [facility] Rx#:[id number] Oral 590 2620 Output: Urine 450 200 Other: Voiding Method Urinal Urinal # Voids 4 - Exam Physical exam: Gen: This is a 86-year-old male awake, alert and oriented 3, well-developed, well-nourished. Currently sitting up in the bed HEENT: Head is atraumatic, normocephalic. Pupils equal, round. Sclerae is anicteric. NECK: Supple. No JVD. No lymphadenopathy. No thyromegaly. LUNGS: Clear to auscultation. No wheezes or rhonchi. No intercostal retractions. HEART: S1, S2 are muffled ABDOMEN: Soft. Bowel sounds are present. No masses. No tenderness. EXTREMITIES: Right foot status post right great toe amputation and surgical dressing is dry and intact. No calf tenderness. NEUROLOGICAL: Patient is awake, alert and oriented x3. Cranial nerves 2 through 12 are grossly intact. - Labs CBC & Chem 7: 09/08/21 06:23 09/08/21 06:23 Labs: Abnormal Lab Results - Last 24 Hours (Table) 09/07/21 09/07/21 09/07/21 Range/Units 08:12 13:18 17:18 POC Glucose (mg/dL) 53 L 189 H 185 H (75-99) mg/dL 09/07/21 Range/Units 20:08 POC Glucose (mg/dL) 281 H (75-99) mg/dL Microbiology - Last 24 Hours (Table) 09/03/21 15:30 Gram Stain - Final Toe - Right First Wound Culture - Final Staphylococcus aureus Aeromonas hydrophila Enterococcus faecalis Enterobacter cloacae 09/02/21 19:07 Blood Culture - Preliminary Blood No Growth after 120 hours 09/07/21 10:00 Wound Culture - Preliminary Incision 09/03/21 15:30 Anaerobic Culture - Final Toe - Right First Anaerobic Gm Negative Bacilli 09/03/21 15:30 Gram Stain - Final Toe - Right First Wound Culture - Final Staphylococcus aureus Aeromonas hydrophila Enterobacter cloacae 09/03/21 15:30 Gram Stain - Final Toe - Right First Tissue Culture - Final Staphylococcus aureus Aeromonas hydrophila Enterococcus faecalis Enterobacter cloacae Non Hemolytic Strep Assessment and Plan Assessment: Assessment: Right great toe gangrene, diabetic foot infectionwith surrounding cellulitis Status post right great toe amputation Diabetes mellitus type 2, uncontrolled with hyperglycemia Acute kidney injury most likely prerenal, improving Possible osteomyelitis of the right toe Chronic low back pain Chronic heart failure, EF unknown Hypertension Peripheral neuropathy Permanent pacemaker placement Past medical history of myocardial infarction with stent placement History of anxiety/depression GI prophylaxis: Protonix DVT prophylaxis: Subcutaneous heparin No code Plan: Recommend to continue with current medications and patient is status post right great toe amputation. Infectious disease following and patient is maintained on IV Unasyn along with oral Cipro while awaiting for finalized cultures. Preliminary cultures showing presumptive staph aureus with gram-negative bacilli and group D enterococcus and Aeromonas hydrophila and awaiting finalized cultures. Vascular surgery Dr. Mendoza following as well. We'll have PT/OT evaluate the patient for possible ECF placement. Patient is adamant about going home and is agreeable with home care and does not want to go to rehab. Patient needs to remain nonweightbearing on that right lower extremity. Will discuss further with infectious disease about discharge planning and possible IV antibiotic therapy once cultures have finalized. Patient states he would like to go home on discharge and will discuss further with case management and social work. Time with Patient: Greater than 30
--- NOTE | 2021-09-08 23:25 | P.PN ---
Subjective Progress Note Date: 09/08/21 Principal diagnosis: Right great toe gangrene with diabetic foot infection. This is an 86-year-old male who was recently admitted to [facility] for increasing pain of the right great toe and concern for cellulitis with gangrene. Patient was transferred here to [facility] for further evaluation and initially started on IV Unasyn and will continue with Unasyn and vancomycin and consult infectious disease. Vascular surgery Dr. Mendoza also consulted for possible amputation of the right great toe. Patient states he has been following at the wound care center in [place] who has been treating the foot infection and has progressively gotten worse in transferred here for further evaluation. Patient follows with in the outpatient setting. Darshan thomas has a past medical history of heart failure, atrial fibrillation, CAD, arthritis, anxiety, depression diabetes mellitus type 2, I disorder, hypertension, myocardial infarction with stents in December 2020, permanent pacemaker placement in 2017 prostate cancer, and chronic back pain. patient also follows at the pain clinic every 2 months for his chronic back pain and is prescribed MS Contin. Patient denies having any right foot pain but his continued with chronic back pain during this hospitalization. Right great toe is positive for necrotic tissue and eschar noted along with some surrounding cellulitis with redness and inflammation that is extending up the dorsal aspect of the right foot and stops midfoot. Plan is for amputation of the right great toe with vascular surgery this afternoon. Initial labs show a white blood count of 6.2, hemoglobin is 13.0, platelets are 131, INR is 1.2, sodium is 135, potassium is 3.8, creatinine is 1.62, and BUN is 44, calcium is 9.0, phosphorus is 3.0, magnesium is 2.1, liver functions within normal limits. 09/04/2021 Patient is seen in follow-up status post right great toe amputation with vascular surgery Dr. Mendoza yesterday. Patient is having some back pain and normally maintained on morphine sulfate and will add low-dose [place] for breakt hrough pain. Patient has peripheral neuropathy and normally does not feel much of his feet and states since the surgery he is feeling some surrounding tenderness of the right foot. Surgical dressing is Intact. Blood sugars are mildly elevated and have resumed home medications and will continue sliding scale and add low-dose long-acting and continued Accu-Cheks before meals and at bedtime. 09/05/2021 Patient is seen and evaluated in follow-up this morning with no acute overnight issues. Patient underwent right great toe amputation and is being followed by vascular surgery Dr. Mendoza along with infectious disease. Preliminary cultures showing presumptive staph aureus with gram-negative bacilli and group D enterococcus and patient is maintained on IV antibiotics in the form of Unasyn a nd vancomycin and will continue. Awaiting for finalized cultures to determine discharge antibiotics. PT/OT to evaluate the patient for possible ECF placement and will discuss further with patient after he discusses with his family members about this as he wants to go home. 09/06/2021 Patient is seen in follow-up this morning continued on IV antibiotics in the form of Unasyn with infectious disease following closely and vancomycin has been discontinued. Patient also continued on oral Cipro and awaiting finalized the tissue cultures. Presumptive staph aureus and Aeromonas hydrophilia preliminary showing on the wound culture and tissue culture showing presumptive staph aureus with group D enterococcus and gram-negative bacilli. Dr. Mendoza also following and planning on dressing changes today. Vital signs within stable and blood sugars have been variable until today lower and will continue with sliding scale along with long-acting and continue Accu-Cheks before meals and at bedtime. Patient denies any chest pain, shortness of breath, or palpitations. Patient is having low-grade intermittent fevers of 99.0-99.4. Patient denies any nausea or vomiting and tolerating diet. Labs: Sodium is 138, potassium is 4.3, BUN is 29, creatinine is 1.20, calcium is 8.8 09/07/2021 Patient is currently resting in the bed. Awake alert and oriented. Continued on antibiotics in the form of Unasyn as per ID recommendations. No complaints of chest pain or shortness breath. Patient is afebrile. Wound cultures showed MSSA and multiple pathogens. 09/08/2021 Patient is currently resting in bed comfortably. Right foot pain is fairly controlled. Continued on antibiotics involve Unasyn and possible change to oral antibiotic course. Follow-up final culture report. Culture is growing gram- negative bacilli. Currently on local dressing and wound care. Patient has been afebrile. Lab data reviewed. Review of systems: Constitutional: No reports of fatigue, fever, or chills Cardiovascular: No reports of chest pain or palpitations Respiratory: No reports of shortness of breath or cough GI: No reports of nausea, vomiting, or diarrhea : No reports of dysuria or retention Neurovascular: No reports of weakness or numbness All medications have been reviewed Objective - Vital Signs Vital signs: Vital Signs Temp 98.6 F 09/08/21 13:00 Pulse 80 09/08/21 17:33 Resp 19 09/08/21 13:00 BP 130/79 09/08/21 17:33 Pulse Ox 99 09/08/21 13:00 Intake & Output 09/07/21 09/08/21 09/08/21 19:59 06:59 18:59 Intake Total 2100 Output Total 400 Balance 1700 Weight Intake: Intake, IV Titration 200 Amount Ampicillin-Sulbactam 3 gm In Sodium Chloride 0.9% 100 ml @ 200 mls/hr IVPB Q6H [facility] Rx#:[id number] Ampicillin-Sulbactam 3 gm 200 In Sodium Chloride 0.9% 100 ml @ 200 mls/hr IVPB Q8H [facility] Rx#:[id number] Oral 1900 Output: Urine 400 Other: Voiding Method Urinal # Voids 4 - Exam Physical exam: Gen: This is a 86-year-old male awake, alert and oriented 3, well-developed, well-nourished. Currently sitting up in the bed HEENT: Head is atraumatic, normocephalic. Pupils equal, round. Sclerae is anicteric. NECK: Supple. No JVD. No lymphadenopathy. No thyromegaly. LUNGS: Clear to auscultation. No wheezes or rhonchi. No intercostal retractions. HEART: S1, S2 are muffled ABDOMEN: Soft. Bowel sounds are present. No masses. No tenderness. EXTREMITIES: Right foot status post right great toe amputation and surgical dressing is dry and intact. No calf tenderness. NEUROLOGICAL: Patient is awake, alert and oriented x3. Cranial nerves 2 through 12 are grossly intact. - Labs CBC & Chem 7: 09/08/21 06:23 09/08/21 06:23 Labs: Abnormal Lab Results - Last 24 Hours (Table) 09/07/21 09/08/21 09/08/21 Range/Units 20:08 06:23 06:23 RBC 4.28 L (4.30-5.90) m/uL Hgb 11.5 L (13.0-17.5) gm/dL Hct 37.0 L (39.0-53.0) % Lymphocytes # 0.8 L (1.0-4.8) k/uL BUN 30.0 H (9.0-27.0) mg/dL Est GFR (CKD-EPI)AfAm 53.1 L (60.0-200.0) Est GFR (CKD-EPI)NonAf 45.8 L (60.0-200.0) BUN/Creatinine Ratio 21.43 H (12.00-20.00) Ratio Glucose 67 L (70-110) mg/dL POC Glucose (mg/dL) 281 H (75-99) mg/dL Calcium 8.4 L (8.7-10.3) mg/dL 09/08/21 09/08/21 09/08/21 Range/Units 07:26 07:45 08:07 RBC (4.30-5.90) m/uL Hgb (13.0-17.5) gm/dL Hct (39.0-53.0) % Lymphocytes # (1.0-4.8) k/uL BUN (9.0-27.0) mg/dL Est GFR (CKD-EPI)AfAm (60.0-200.0) Est GFR (CKD-EPI)NonAf (60.0-200.0) BUN/Creatinine Ratio (12.00-20.00) Ratio Glucose (70-110) mg/dL POC Glucose (mg/dL) 50 L 62 L 104 H (75-99) mg/dL Calcium (8.7-10.3) mg/dL 09/08/21 09/08/21 Range/Units 12:03 17:22 RBC (4.30-5.90) m/uL Hgb (13.0-17.5) gm/dL Hct (39.0-53.0) % Lymphocytes # (1.0-4.8) k/uL BUN (9.0-27.0) mg/dL Est GFR (CKD-EPI)AfAm (60.0-200.0) Est GFR (CKD-EPI)NonAf (60.0-200.0) BUN/Creatinine Ratio (12.00-20.00) Ratio Glucose (70-110) mg/dL POC Glucose (mg/dL) 109 H 193 H (75-99) mg/dL Calcium (8.7-10.3) mg/dL Microbiology - Last 24 Hours (Table) 09/07/21 10:00 Gram Stain - Preliminary Incision Wound Culture - Preliminary Gram Neg Bacilli 09/03/21 15:30 Anaerobic Culture - Final Toe - Right First 09/03/21 15:30 Anaerobic Culture - Final Toe - Right First 09/03/21 15:30 Gram Stain - Final Toe - Right First Wound Culture - Final Staphylococcus aureus Aeromonas hydrophila Enterococcus faecalis Enterobacter cloacae 09/02/21 19:07 Blood Culture - Preliminary Blood No Growth after 120 hours Assessment and Plan Assessment: Assessment: Right great toe gangrene, diabetic foot infectionwith surrounding cellulitis Status post right great toe amputation Diabetes mellitus type 2, uncontrolled with hyperglycemia Acute kidney injury most likely prerenal, improving Possible osteomyelitis of the right toe Chronic low back pain Chronic heart failure, EF unknown Hypertension Peripheral neuropathy Permanent pacemaker placement Past medical history of myocardial infarction with stent placement History of anxiety/depression GI prophylaxis: Protonix DVT prophylaxis: Subcutaneous heparin No code Plan: Recommend to continue with current medications and patient is status post right great toe amputation. Infectious disease following and patient is maintained on IV Unasyn along with oral Cipro while awaiting for finalized cultures. P reliminary cultures showing presumptive staph aureus with gram-negative bacilli and group D enterococcus and Aeromonas hydrophila and awaiting finalized cultures. Vascular surgery Dr. Mendoza following as well. We'll have PT/OT evaluate the patient for possible ECF placement. Patient is adamant about going home and is agreeable with home care and does not want to go to rehab. Patient needs to remain nonweightbearing on that right lower extremity. Will discuss further with infectious disease about discharge planning and possible IV antibiotic therapy once cultures have finalized. Patient states he would like to go home on discharge and will discuss further with case management and social work. Time with Patient: Greater than 30
[2021-09-09] MEDS: AMPICILLIN-SULBACTAM 3 GM in SODIUM CHLORIDE 0.9% 100 ML IVPB SCH ×3 (05:16→21:25)
[2021-09-09 06:25] LABS: Basophils % (A) 0 %; Eosinophils # (A) 0.2 k/uL (0-0.7); Eosinophils % (A) 3 %; HCT 39.3 % (39.0-53.0); HGB 12.4 gm/dL (13.0-17.5); Hypochromasia Slight; Lymphocytes # (A) 0.8 k/uL (1.0-4.8); Lymphocytes % (A) 14 %; MCH 27.4 pg (25.0-35.0); MCHC 31.5 g/dL (31.0-37.0); MCV 87.2 fL (80.0-100.0); Mean Platelet Volume 8.2; Monocytes # (A) 0.4 k/uL (0-1.0); Monocytes % (A) 6 %; Neutrophils # (A) 4.4 k/uL (1.3-7.7); Neutrophils % (A) 74 %; Platelet Count 275 k/uL (150-450); RBC 4.51 m/uL (4.30-5.90); RDW 13.9 % (11.5-15.5); WBC 5.9 k/uL (3.8-10.6)
[2021-09-09 07:41] LABS: Glucose,Whole Blood 148 mg/dL (75-99)
[2021-09-09] MEDS: DIGOXIN 125 MCG TAB PO SCH (09:04)
[2021-09-09] MEDS: TAMSULOSIN 0.4 MG CAP.ER.24H PO SCH (09:04)
[2021-09-09] MEDS: PANTOPRAZOLE 40 MG TABLET PO SCH (09:04)
[2021-09-09] MEDS: FENOFIBRATE 160 MG TAB PO SCH (09:04)
[2021-09-09] MEDS: PREGABALIN 75 MG CAP PO SCH ×2 (09:04→21:28)
[2021-09-09] MEDS: CHOLECALCIFEROL 25 MCG (1000 IU) TABLET PO SCH (09:04)
[2021-09-09] MEDS: GLIMEPIRIDE 4 MG TAB PO SCH ×2 (09:04→21:28)
[2021-09-09] MEDS: carvediloL 3.125 MG TAB PO SCH ×2 (09:04→18:16)
[2021-09-09] MEDS: MORPHINE SULFATE ER 15 MG TABLET PO SCH ×2 (09:05→21:29)
[2021-09-09] MEDS: SENNOSIDES 8.6 MG TAB PO SCH ×2 (09:05→21:29)
[2021-09-09] MEDS: HEPARIN SODIUM,PORCINE/PF 5,000 UNIT/0.5 ML SYRINGE SQ SCH ×2 (09:06→21:30)
[2021-09-09] MEDS: INSULIN ASPART (NovoLOG) 100 UNIT/ML VIAL SQ SCH ×5 (09:07→21:30)
[2021-09-09] MEDS: INSULIN DETEMIR (LEVEMIR) 100 UNIT/ML SYR SQ SCH (09:07)
[2021-09-09] MEDS: ATORVASTATIN 20 MG TAB PO SCH (09:08)
[2021-09-09] MEDS: CIPROFLOXACIN HCL 500 MG TAB PO SCH ×2 (09:09→21:28)
[2021-09-09 11:16] VITALS: BMI 32.1
--- NOTE | 2021-09-09 12:05 | P.CN ---
Psychiatric Consult - . Consult date: 09/09/21 Consult:: 09/09/21 11:51 IDENTIFYING DATA: This patient is a 86-year-old male who is currently and lives with his in a house has 5 kids and 16 grandkids. 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 REASON FOR REFERRAL: Psychiatry was consulted for "suicide ideations and depression" HISTORY OF PRESENT ILLNESS: The patient presented to the hospital on 09/03 for gangrene on his right toe. Patient apparently has been following up at the clinic with his doctor however the gangrene has worsened. Patient was started on antibiotics IV. Patient's nurse claims that patient was endorsing feeling sad and having relationship problems with his daughter and also his . She had claimed that patient spoke about taking medications and not waking up. He is currently on 11 sitter with suicidal precautions. Patient was seen at the bedside and agreeable to speak to feature writer. He claims that his right toes "turned black" and he was getting concerned and came to the hospital. He states that he follows up with Dr. Mendoza in the clinic. He states that he also has been dealing with severe back pain and states that "it's very bad" and states that he is going to a pain clinic and they're giving him "to morphine today". He states that he is having relationship issues with his and claims that he is feeling sad as he cannot speak with his grandchildren in the hospital. He was complaining that the phone got taken away from him. He states that "if they gave me a pill and I would than "I would be okay with it". He states that he does not want actively harm himself and states that he has to live for his family, grandchildren and also he is oriental orthodox and states that "I want to go to critical access hospital". He claims that his appetite and sleep have been fair. He states that he is feeling depressed and anxious. He was agreeable to be started back on Cymbalta. He states that he is dealing with significant health problems which are making him feel sad . At this time patient denies any homical ideations, intent or plan. Current suicidal plan. Patient denies any auditory, visual hallucinations and denies any paranoia or delusions. Patients admits to using recreational drugs. Nuclear Monitoring Technician attempted to call patient's Areli at [phone], states that patient has been endorsing passive SI at home "praying to God that he doesnt want to wake up". This apparently has been chronic and related to relationship i ssues. Guns have been taken from house by police before and states that there is guns in the house locked in a caginet however she does not have the [place]. I informed her that the police need to be informd to take them away from the house, she acknowledged and states that she will contact them to have them removed again. PAST PSYCHIATRIC HISTORY: Patient has a a history of depression. Patient is cu rrently on cymbalta and trazodone. Patient denies any previous psychiatric hospitalizations. Patient denies any psychiatric outpatient follow-up.He is following up with his Patient denies any history of suicide attempts in the past. Past Medical History: Heart Failure, Diabetes Mellitus, Eye Disorder, Hypertension, Myocardial Infarction (VT), Prostate Disorder, Skin Disorder Additional Past Medical History / Comment(s): VT's, stent, nueropathy, prostate cancer, cellulitis, chronic back pain ALLERGIES: as per EMR. CHEMICAL DEPENDENCY HISTORY: as per HPI. FAMILY PSYCHIATRIC/SUBSTANCE USE HISTORY: denies SOCIAL HISTORY: Patient was born and raised in [facility]. He states that he completed high school and attended college. 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 He currently lives with his in a house has 5 kids. He has 16 grandchildren.. MENTAL STATUS EXAM: General Appearance: Patient appears to be tall, stated age is alert, directable, and cooperative. Patient appears to have fair hygiene and grooming wearing hospital gown with fair eye contact. Behavior: Patient is calmly lying in bed without any agitated behavior. Speech: Patient's speech is fluent and nonpressured. Mood/Affect: Patient reports their mood is "depressed", affect is congruent Suicidality/Homicidality: Patient denies having any homicidal ideation intent or plan. He claims that he is having passive suicidal thoughts however no intent or plan. Perceptions: Patient denies any visual hallucinations and denies any auditory hallucinations Though content/process: There is no evidence of any delusional thought content and thought process is linear and goal-directed. Rambles at times. Focused on his stressors. Memory and concentration: AOX3, grossly intact for the purposes of this session. 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 -Delirium precautions recommended with patient including - avoiding use of narcotics and WELDER APPRENTICE COMBINATION sedatives, limit anticholinergic medications when possible, frequent re-orientation, minimize use of restraints, open window shades during the day and close them at night -Would recommend the following medication changes/additions: Restarted Cymbalta 30 mg daily for mood/anxiety/mood. Will attempt to titrate up as needed. Continue with trazodone 50 mg daily at bedtime for insomnia/mood. -Continue 1:1 sitter for safety -Will allow patient to use his cellular phone however she must be observed with it by the sitter at all times. -Communicated plan to patient's nurse -Will continue to follow along -Please contact with any questions.
[2021-09-09 12:35] LABS: Glucose,Whole Blood 194 mg/dL (75-99)
[2021-09-09] MEDS: DULoxetine HCL 30 MG CAPSULE.DR PO SCH (12:45)
--- NOTE | 2021-09-09 12:53 | PN ---
PROGRESS NOTE This is an 86-year-old gentleman. Patient has gangrene of the right foot. Patient went for amputation. Patient developed dehiscence on the plantar aspect of the wound with some serous drainage. We removed a few stitches, and today we have changed the dressing. Dorsal aspect of the incision is healing. Plantar aspect wound is open. We used Aquacel Silver for the wound. PLAN: Continue with antibiotic. When patient goes home, the patient will be followed in the wound clinic. We used Aquacel Silver, which should be changed every 48 hours. Discussed with the patient and the nurses. MMODL / IJN: [id number] /
--- NOTE | 2021-09-09 14:21 | PN ---
PROGRESS NOTE DATE OF SERVICE: 09/09/2021 REASON FOR FOLLOWUP: Right big toe gangrene and cellulitis. INTERVAL HISTORY: The patient is afebrile. The patient is breathing comfortably. Apparently the patient seems to be slightly depressed and has made some statements that required placement of a sitter and psych evaluation. The patient mentioned he did not mean to do it. No chest pain. No abdominal pain or diarrhea. PHYSICAL EXAMINATION: Blood pressure 119/66, pulse of 80, temperature 98.5. He is 95% on room air. General description is an elderly male up in the chair in no distress. Respiratory system: Unlabored breathing, clear to auscultation anteriorly. Heart S1, S2. Regular rate and rhythm. Abdomen soft, no tenderness. Right foot is currently dressed. No drainage on the dressing. Dressing was changed by the surgeon earlier; overall resolution of cellulitis. Did have some dehiscence of the wound. LABS: White count normalized, 5.9. DIAGNOSTIC IMPRESSION AND PLAN: Patient with right big toe gangrene, status post amputation. Culture with multiple pathogens. Planning for Augmentin and Cipro on discharge and close outpatient followup. MMODL / IJN: [id number] /
[2021-09-09] MEDS: HYDROcodone/APAP 5-325MG 1 EACH TAB PO PRN (16:25)
[2021-09-09 16:26] LABS: African American GFR (CKD) 56.5 (60.0-200.0); Anion Gap 21.2 mmol/L (4.00-12.00); BUN/Creat Ratio 23.23 Ratio (12.00-20.00); Blood Urea Nitrogen 30.9 mg/dL (9.0-27.0); Calcium 8.5 mg/dL (8.7-10.3); Carbon Dioxide 21.2 mmol/L (21.6-31.8); Non-African American GFR(CKD) 48.7 (60.0-200.0); Potassium 5.1 mmol/L (3.5-5.5)
[2021-09-09 17:06] LABS: Glucose,Whole Blood 175 mg/dL (75-99)
[2021-09-09 20:36] LABS: Glucose,Whole Blood 178 mg/dL (75-99)
[2021-09-09] MEDS: traZODone HCL 50 MG TAB PO SCH (21:30)
[2021-09-10] MEDS: HYDROcodone/APAP 5-325MG 1 EACH TAB PO PRN (05:26)
[2021-09-10] MEDS: AMPICILLIN-SULBACTAM 3 GM in SODIUM CHLORIDE 0.9% 100 ML IVPB SCH ×2 (05:34→12:41)
[2021-09-10 06:20] LABS: Basophils # (A) 0.1 k/uL (0-0.2); Basophils % (A) 1 %; Eosinophils # (A) 0.2 k/uL (0-0.7); Eosinophils % (A) 3 %; HCT 39.8 % (39.0-53.0); HGB 12.7 gm/dL (13.0-17.5); Lymphocytes # (A) 0.8 k/uL (1.0-4.8); Lymphocytes % (A) 12 %; MCH 27.2 pg (25.0-35.0); MCHC 31.9 g/dL (31.0-37.0); MCV 85.3 fL (80.0-100.0); Mean Platelet Volume 8.2; Monocytes # (A) 0.5 k/uL (0-1.0); Monocytes % (A) 7 %; Neutrophils # (A) 5.4 k/uL (1.3-7.7); Neutrophils % (A) 76 %; Platelet Count 331 k/uL (150-450); RBC 4.66 m/uL (4.30-5.90); RDW 14.5 % (11.5-15.5); WBC 7.1 k/uL (3.8-10.6)
[2021-09-10 07:06] LABS: Glucose,Whole Blood 76 mg/dL (75-99)
[2021-09-10] MEDS: INSULIN ASPART (NovoLOG) 100 UNIT/ML VIAL SQ SCH ×2 (08:31→12:37)
[2021-09-10] MEDS: MORPHINE SULFATE ER 15 MG TABLET PO SCH (08:32)
[2021-09-10] MEDS: ATORVASTATIN 20 MG TAB PO SCH (08:32)
[2021-09-10] MEDS: CHOLECALCIFEROL 25 MCG (1000 IU) TABLET PO SCH (08:32)
[2021-09-10] MEDS: PANTOPRAZOLE 40 MG TABLET PO SCH (08:32)
[2021-09-10] MEDS: TAMSULOSIN 0.4 MG CAP.ER.24H PO SCH (08:32)
[2021-09-10] MEDS: PREGABALIN 75 MG CAP PO SCH (08:32)
[2021-09-10] MEDS: FENOFIBRATE 160 MG TAB PO SCH (08:33)
[2021-09-10] MEDS: SENNOSIDES 8.6 MG TAB PO SCH (08:33)
[2021-09-10] MEDS: carvediloL 3.125 MG TAB PO SCH (08:33)
[2021-09-10] MEDS: DULoxetine HCL 30 MG CAPSULE.DR PO SCH (08:33)
[2021-09-10] MEDS: GLIMEPIRIDE 4 MG TAB PO SCH (08:36)
[2021-09-10] MEDS: CIPROFLOXACIN HCL 500 MG TAB PO SCH (08:36)
[2021-09-10] MEDS: DIGOXIN 125 MCG TAB PO SCH (08:36)
[2021-09-10 09:13] LABS: Glucose,Whole Blood 101 mg/dL (75-99)
[2021-09-10] MEDS: HEPARIN SODIUM,PORCINE/PF 5,000 UNIT/0.5 ML SYRINGE SQ SCH (09:32)
[2021-09-10] MEDS: INSULIN DETEMIR (LEVEMIR) 100 UNIT/ML SYR SQ SCH (09:50)
[2021-09-10 11:06] LABS: African American GFR (CKD) 58.1 (60.0-200.0); Anion Gap 9.2 mmol/L (4.00-12.00); BUN/Creat Ratio 21.54 Ratio (12.00-20.00); Calcium 8.6 mg/dL (8.7-10.3); Carbon Dioxide 22.8 mmol/L (21.6-31.8); Non-African American GFR(CKD) 50.1 (60.0-200.0); Potassium 4.7 mmol/L (3.5-5.5)
[2021-09-10 12:33] LABS: Glucose,Whole Blood 129 mg/dL (75-99)
[2021-09-10 12:41] VITALS: BP 148/79; PULSE 78; RESP 19; TEMP 97.8
--- NOTE | 2021-09-10 13:10 | PN ---
PROGRESS NOTE DATE OF SERVICE: 09/10/2021 REASON FOR FOLLOWUP: Right big toe gangrene, status post amputation. INTERVAL HISTORY: The patient is afebrile, has been breathing comfortably. No chest pain, shortness of breath or cough. No abdominal pain or any worsening pain to the right foot amputation site. PHYSICAL EXAMINATION: Blood pressure is 148/79 with a pulse of 98, temperature 97.8. He is 94% on room air. General description is an elderly male up in the bed in no distress. Respiratory system: Unlabored breathing, clear to auscultation anteriorly. Heart S1, S2. Regular rate and rhythm. Abdomen soft, no tenderness. Right foot is currently dressed up. No obvious drainage on the dressing. LABS: Hemoglobin is 12.6, white count 7.1. Creatinine is 1.3. DIAGNOSTIC IMPRESSION AND PLAN: Patient with right big toe gangrene, status post amputation of the right big toe. Culture with multiple pathogens. Patient is covered with Unasyn and Cipro. Finish therapy with oral Augmentin and Cipro once his psych condition stabilizes. Continue with supportive care. MMODL / IJN: [id number] /
--- NOTE | 2021-09-10 13:31 | P.PN ---
Progress Note - Text Progress Note Date: 09/10/21 Interval History: Patient was seen today for psychiatric follow-up regarding patient's depressive disorder and suicidal thoughts. Patient appears to have improvement in his affect today. Nursing care patient denies any complaints and patient states that he has been doing well and cooperative. Patient claims that he was able to sleep better last night. He reassured service writer several times that he is not feeling suicidal and has a lot to live for. He mentioned his family several times it spoke about his grandchildren whom he loves. He also continues to speak about his sabianism and him wanting to go to have been. He states that he will not go to [facility] if he ever commit suicide. He states that he is not having any anxiety today. He claims that he did have some pain earlier this morning.. At this time patient denies any suicidal or homical ideations, intent or plan. Patient denies any auditory, visual hallucinations and denies any paranoia or delusions. Patient denies any side effects from the medications and has been compliant with meds. Mental Status Exam: general Appearance: Patient appears to be tall, stated age is alert, directable, and cooperative. Patient appears to have fair hygiene and grooming wearing hospital gown with fair eye contact. Behavior: Patient is calmly lying in bed without any agitated behavior. Cooperative today Speech: Patient's speech is fluent and nonpressured. Mood/Affect: Patient reports their mood is "good", affect is congruent and has a bright affect Suicidality/Homicidality: Patient denies having any homicidal ideation intent or plan. He is denying any suicidal thoughts today no intent or plan. Perceptions: Patient denies any visual hallucinations and denies any auditory hallucinations Though content/process: There is no evidence of any delusional thought content and thought process is linear and goal-directed. Rambles at times. Future oriented Memory and concentration: AOX3, grossly intact for the purposes of this session. 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 -Delirium precautions recommended with patient including - avoiding use of narcotics and GEOSPATIAL SYSTEMS INTEGRATOR sedatives, limit anticholinergic medications when possible, frequent re-orientation, minimize use of restraints, open window shades during the day and close them at night -Would recommend the following medication changes/additions: Cymbalta 30 mg d aily for mood/anxiety/mood. Continue with trazodone 50 mg daily at bedtime for insomnia/mood. -Okay to discontinue one-to-one sitter today as patient is not endorsing suicidal thoughts and contracts for safety. -Communicated plan to patient's nurse -At this time psychiatry will sign off -Please contact with any questions.
--- NOTE | 2021-09-10 15:16 | P.PN ---
Subjective Progress Note Date: 09/09/21 Principal diagnosis: Right great toe gangrene with diabetic foot infection. This is an 86-year-old male who was recently admitted to [facility] for increasing pain of the right great toe and concern for cellulitis with gangrene. Patient was transferred here to [facility] for further evaluation and initially started on IV Unasyn and will continue with Unasyn and vancomycin and consult infectious disease. Vascular surgery Dr. Mendoza also consulted for possible amputation of the right great toe. Patient states he has been following at the wound care center in [place] who has been treating the foot infection and has progressively gotten worse in transferred here for further evaluation. Patient follows with in the outpatient setting. Darshan thomas has a past medical history of heart failure, atrial fibrillation, CAD, arthritis, anxiety, depression diabetes mellitus type 2, I disorder, hypertension, myocardial infarction with stents in December 2020, permanent pacemaker placement in 2017 prostate cancer, and chronic back pain. patient also follows at the pain clinic every 2 months for his chronic back pain and is prescribed MS Contin. Patient denies having any right foot pain but his continued with chronic back pain during this hospitalization. Right great toe is positive for necrotic tissue and eschar noted along with some surrounding cellulitis with redness and inflammation that is extending up the dorsal aspect of the right foot and stops midfoot. Plan is for amputation of the right great toe with vascular surgery this afternoon. Initial labs show a white blood count of 6.2, hemoglobin is 13.0, platelets are 131, INR is 1.2, sodium is 135, potassium is 3.8, creatinine is 1.62, and BUN is 44, calcium is 9.0, phosphorus is 3.0, magnesium is 2.1, liver functions within normal limits. 09/04/2021 Patient is seen in follow-up status post right great toe amputation with vascular surgery Dr. Mendoza yesterday. Patient is having some back pain and normally maintained on morphine sulfate and will add low-dose [place] for breakt hrough pain. Patient has peripheral neuropathy and normally does not feel much of his feet and states since the surgery he is feeling some surrounding tenderness of the right foot. Surgical dressing is Intact. Blood sugars are mildly elevated and have resumed home medications and will continue sliding scale and add low-dose long-acting and continued Accu-Cheks before meals and at bedtime. 09/05/2021 Patient is seen and evaluated in follow-up this morning with no acute overnight issues. Patient underwent right great toe amputation and is being followed by vascular surgery Dr. Mendoza along with infectious disease. Preliminary cultures showing presumptive staph aureus with gram-negative bacilli and group D enterococcus and patient is maintained on IV antibiotics in the form of Unasyn a nd vancomycin and will continue. Awaiting for finalized cultures to determine discharge antibiotics. PT/OT to evaluate the patient for possible ECF placement and will discuss further with patient after he discusses with his family members about this as he wants to go home. 09/06/2021 Patient is seen in follow-up this morning continued on IV antibiotics in the form of Unasyn with infectious disease following closely and vancomycin has been discontinued. Patient also continued on oral Cipro and awaiting finalized the tissue cultures. Presumptive staph aureus and Aeromonas hydrophilia preliminary showing on the wound culture and tissue culture showing presumptive staph aureus with group D enterococcus and gram-negative bacilli. Dr. Mendoza also following and planning on dressing changes today. Vital signs within stable and blood sugars have been variable until today lower and will continue with sliding scale along with long-acting and continue Accu-Cheks before meals and at bedtime. Patient denies any chest pain, shortness of breath, or palpitations. Patient is having low-grade intermittent fevers of 99.0-99.4. Patient denies any nausea or vomiting and tolerating diet. Labs: Sodium is 138, potassium is 4.3, BUN is 29, creatinine is 1.20, calcium is 8.8 09/07/2021 Patient is currently resting in the bed. Awake alert and oriented. Continued on antibiotics in the form of Unasyn as per ID recommendations. No complaints of chest pain or shortness breath. Patient is afebrile. Wound cultures showed MSSA and multiple pathogens. 09/08/2021 Patient is currently resting in bed comfortably. Right foot pain is fairly controlled. Continued on antibiotics involve Unasyn and possible change to oral antibiotic course. Follow-up final culture report. Culture is growing gram- negative bacilli. Currently on local dressing and wound care. Patient has been afebrile. Lab data reviewed. 09/09/21 Patient currently resting in the bed. Patient was agitated and delirious. P sychiatry was consulted for possible depression as well. Otherwise patient is on IV antibiotics. Status post amputation of the great toe. Anticipate discharge with oral antibiotics in the next 24 hours to rehab. Review of systems: Constitutional: No reports of fatigue, fever, or chills Cardiovascular: No reports of chest pain or palpitations Respiratory: No reports of shortness of breath or cough GI: No reports of nausea, vomiting, or diarrhea : No reports of dysuria or retention Neurovascular: No reports of weakness or numbness All medications have been reviewed Objective - Vital Signs Vital signs: Vital Signs Temp 98.1 F 09/09/21 12:57 Pulse 80 09/09/21 12:57 Resp 17 09/09/21 12:57 BP 119/70 09/09/21 12:57 Pulse Ox 94 L 09/09/21 12:57 Intake & Output 09/08/21 09/09/21 09/09/21 18:59 06:59 18:59 Intake Total 2100 200 Output Total 400 400 Balance 1700 -200 Weight 98.5 kg Intake: Intake, IV Titration 200 200 Amount Ampicillin-Sulbactam 3 gm 200 200 In Sodium Chloride 0.9% 100 ml @ 200 mls/hr IVPB Q8H FREDO Rx#:[id number] Oral 1900 Output: Urine 400 400 Other: Voiding Method Urinal Toilet Urinal # Voids 4 - Exam Physical exam: Gen: This is a 86-year-old male awake, alert and oriented 3, well-developed, well-nourished. Currently sitting up in the bed HEENT: Head is atraumatic, normocephalic. Pupils equal, round. Sclerae is anicteric. NECK: Supple. No JVD. No lymphadenopathy. No thyromegaly. LUNGS: Clear to auscultation. No wheezes or rhonchi. No intercostal retractions. HEART: S1, S2 are muffled ABDOMEN: Soft. Bowel sounds are present. No masses. No tenderness. EXTREMITIES: Right foot status post right great toe amputation and surgical d ressing is dry and intact. No calf tenderness. NEUROLOGICAL: Patient is awake, alert and oriented x3. Cranial nerves 2 through 12 are grossly intact. - Labs CBC & Chem 7: 09/10/21 05:19 09/10/21 05:19 Labs: Abnormal Lab Results - Last 24 Hours (Table) 09/08/21 09/09/21 09/09/21 Range/Units 20:37 05:42 05:42 Hgb 12.4 L (13.0-17.5) gm/dL Lymphocytes # 0.8 L (1.0-4.8) k/uL Carbon Dioxide 21.2 L (21.6-31.8) mmol/L Anion Gap 21.20 H (4.00-12.00) mmol/L BUN 30.9 H (9.0-27.0) mg/dL Est GFR (CKD-EPI)AfAm 56.5 L (60.0-200.0) Est GFR (CKD-EPI)NonAf 48.7 L (60.0-200.0) BUN/Creatinine Ratio 23.23 H (12.00-20.00) Ratio Glucose 177 H (70-110) mg/dL POC Glucose (mg/dL) 233 H (75-99) mg/dL Calcium 8.5 L (8.7-10.3) mg/dL 09/09/21 09/09/21 09/09/21 Range/Units 07:40 12:34 17:04 Hgb (13.0-17.5) gm/dL Lymphocytes # (1.0-4.8) k/uL Carbon Dioxide (21.6-31.8) mmol/L Anion Gap (4.00-12.00) mmol/L BUN (9.0-27.0) mg/dL Est GFR (CKD-EPI)AfAm (60.0-200.0) Est GFR (CKD-EPI)NonAf (60.0-200.0) BUN/Creatinine Ratio (12.00-20.00) Ratio Glucose (70-110) mg/dL POC Glucose (mg/dL) 148 H 194 H 175 H (75-99) mg/dL Calcium (8.7-10.3) mg/dL Microbiology - Last 24 Hours (Table) 09/07/21 10:00 Gram Stain - Final Incision Wound Culture - Final Aeromonas hydrophila 09/02/21 19:07 Blood Culture - Final Blood No Growth after 144 hours Assessment and Plan Assessment: Assessment: Right great toe gangrene, diabetic foot infectionwith surrounding cellulitis Status post right great toe amputation Diabetes mellitus type 2, uncontrolled with hyperglycemia Acute kidney injury most likely prerenal, improving Possible osteomyelitis of the right toe Chronic low back pain Chronic heart failure, EF unknown Hypertension Peripheral neuropathy Permanent pacemaker placement Past medical history of myocardial infarction with stent placement History of anxiety/depression GI prophylaxis: Protonix DVT prophylaxis: Subcutaneous heparin No code Plan: Recommend to continue with current medications and patient is status post right great toe amputation. Infectious disease following and patient is maintained on IV Unasyn along with oral Cipro while awaiting for finalized cultures. P reliminary cultures showing presumptive staph aureus with gram-negative bacilli and group D enterococcus and Aeromonas hydrophila and awaiting finalized cultures. Vascular surgery Dr. Mendoza following as well. We'll have PT/OT evaluate the patient for possible ECF placement. Patient is adamant about going home and is agreeable with home care and does not want to go to rehab. Patient needs to remain nonweightbearing on that right lower extremity. Will discuss further with infectious disease about discharge planning and possible IV antibiotic therapy once cultures have finalized. Patient states he would like to go home on discharge and will discuss further with case management and social work.
--- NOTE | 2021-09-10 15:31 | P.DS ---
Providers Date of admission: 09/02/21 18:03 Expected date of discharge: 09/10/21 Attending physician: Guru Whiting Consults: 09/02/21 18:47 Consult Physician Urgent Consulting Provider: Jairo Landeros Consult Reason/Comments: gangrenous great toe Do you want consulting provider notified?: Yes 09/02/21 18:52 Consult Physician Urgent Consulting Provider: Lionel Mendoza Consult Reason/Comments: right great toe gangrene Do you want consulting provider notified?: Yes 09/09/21 09:38 Consult Physician Routine Consulting Provider: Matias Beal Consult Reason/Comments: suicidal ideations, depression Do you want consulting provider notified?: Already Contacted Primary care physician: Dominic Yepez Hospital Course: Discharge diagnosis Right great toe gangrene, diabetic foot infectionwith surrounding cellulitis. \ Status post right great toe amputation Diabetes mellitus type 2, uncontrolled with hyperglycemia Acute kidney injury most likely prerenal, improving Possible osteomyelitis of the right toe Chronic low back pain Chronic heart failure, EF unknown Hypertension Peripheral neuropathy Permanent pacemaker placement Past medical history of myocardial infarction with stent placement History of anxiety/depression GI prophylaxis: Protonix DVT prophylaxis: Subcutaneous heparin No code hospital course This is an 86-year-old male who was recently admitted to [facility] for increasing pain of the right great toe and concern for cellulitis with gangrene. Patient was transferred here to [facility] for further evaluation and initially started on IV Unasyn and will continue with Unasyn and vancomycin and consult infectious disease. Vascular surgery Dr. Mendoza also consulted for possible amputation of the right great toe. Patient states he has been following at the wound care center in [place] who has been treating the foot infection and has progressively gotten worse in transferred here for further evaluation. Patient follows with in the outpatient setting. Patient has a past medical history of heart failure, atrial fibrillation, CAD, arthritis, anxiety, depression diabetes mellitus type 2, I disorder, hype rtension, myocardial infarction with stents in December 2020, permanent pacemaker placement in 2016 prostate cancer, and chronic back pain. patient also follows at the pain clinic every 2 months for his chronic back pain and is prescribed MS Contin. Patient denies having any right foot pain but his continued with chronic back pain during this hospitalization. Right great toe is positive for necrotic tissue and eschar noted along with some surrounding cellulitis with redness and inflammation that is extending up the dorsal aspect of the right foot and stops midfoot. Plan is for amputation of the right great toe with vascular surgery this afternoon. Initial labs show a white blood count of 6.2, hemoglobin is 13.0, platelets are 131, INR is 1.2, sodium is 135, potassium is 3.8, creatinine is 1.62, and BUN is 44, calcium is 9.0, phosphorus is 3.0, magnesium is 2.1, liver functions within normal limits. 09/04/2021 Patient is seen in follow-up status [facility]. Patient is having some back pain and normally maintained on morphine sulfate and will add low-dose [place] for breakthrough pain. Patient has peripheral neuropathy and normally does not feel much of his feet and states since the surgery he is feeling some surrounding tenderness of the right foot. Surgical dressing is Intact. Blood sugars are mildly elevated and have resumed home medications and will continue sliding scale and add low-dose long-acting and continued Accu-Cheks before meals and at bedtime. 09/05/2021 Patient is seen and evaluated in follow-up this morning with no acute overnight issues. Patient underwent right great toe amputation and is being followed by vascular surgery Dr. Mendoza along with infectious disease. Preliminary culture s showing presumptive staph aureus with gram-negative bacilli and group D enterococcus and patient is maintained on IV antibiotics in the form of Unasyn and vancomycin and will continue. Awaiting for finalized cultures to determine discharge antibiotics. PT/OT to evaluate the patient for possible ECF placement and will discuss further with patient after he discusses with his family members about this as he wants to go home. 09/06/2021 Patient is seen in follow-up this morning continued on IV antibiotics in the form of Unasyn with infectious disease following closely and vancomycin has been discontinued. Patient also continued on oral Cipro and awaiting finalized the tissue cultures. Presumptive staph aureus and Aeromonas hydrophilia preliminary showing on the wound culture and tissue culture showing presumptive staph aureus with group D enterococcus and gram-negative bacilli. Dr. Mendoza also following and planning on dressing changes today. Vital signs within stable and blood s ugars have been variable until today lower and will continue with sliding scale along with long-acting and continue Accu-Cheks before meals and at bedtime. Patient denies any chest pain, shortness of breath, or palpitations. Patient is having low-grade intermittent fevers of 99.0-99.4. Patient denies any nausea or vomiting and tolerating diet. Labs: Sodium is 138, potassium is 4.3, BUN is 29, creatinine is 1.20, calcium is 8.8 09/07/2021 Patient is currently resting in the bed. Awake alert and oriented. Continued on antibiotics in the form of Unasyn as per ID recommendations. No complaints of chest pain or shortness breath. Patient is afebrile. Wound cultures showed MSSA and multiple pathogens. 09/08/2021 Patient is currently resting in bed comfortably. Right foot pain is fairly controlled. Continued on antibiotics involve Unasyn and possible change to oral antibiotic course. Follow-up final culture report. Culture is growing gram- negative bacilli. Currently on local dressing and wound care. Patient has been afebrile. Lab data reviewed. 09/09/21 Patient currently resting in the bed. Patient was agitated and delirious. Psychiatry was consulted for possible depression as well. Otherwise patient is on IV antibiotics. Status post amputation of the great toe. Anticipate discharge with oral antibiotics in the next 24 hours to rehab. 09/10/2021 Patient is currently resting in the bed comfortable. Awake alert. Status post amputation of the great toe. Cultures growing multiple organisms. Patient will be continued on oral antibiotics in the form of Augmentin and Cipro as per ID recommendations. Patient has been afebrile. Mentation is much improved. Patient is being discharged to rehab. PHYSICAL EXAMINATION: Patient is lying in the bed comfortably, no acute distress, awake alert and oriented.. HEENT: Normocephalic. Neck is supple. Pupils reactive. Nostrils clear. Oral cavity is moist. Neck reveals no JVD, carotid bruits, or thyromegaly. CHEST EXAMINATION: Trachea is central. Symmetrical expansion. Lung martin clear to auscultation and percussion. CARDIAC: Normal S1, S2 with no gallops. No murmurs ABDOMEN: Soft. Bowel sounds normal. No organomegaly. No abdominal bruits. Extremities: reveal no edema. No clubbing or cyanosis Right greater amputation site is intact. No discharge. Neurologically awake, alert, oriented x2-3 with well-coordinated movements. No focal deficits noted Skin: No rash or skin lesions. Psychiatric: Coperative. Nonsuicidal Musculoskeletal: No joint swelling or deformity. Normal range of motion. Vital Signs - 8 hr 09/10/21 09/10/21 07:44 12:40 Temperature 97.9 F 97.8 F Pulse Rate [ 81 78 Pulse Oximetery ] Respiratory 20 19 Rate Blood Pressure 123/79 148/79 [Right Arm] O2 Sat by Pulse 94 L Oximetry Total time taken greater than 35 minutes including 18 minutes for counseling and coordination of care. Patient Condition at Discharge: Good Plan - Discharge Summary Discharge Rx Participant: Yes New Discharge Prescriptions: New Ciprofloxacin HCl [Cipro] 500 mg PO BID 10 Days #20 tab Amoxic-Pot Clav 875-125Mg [Augmentin 875-125] 1 tab PO Q12HR 10 Days #20 tab Continue traZODone HCL 50 mg PO HS Tamsulosin HCl [Flomax] 0.4 mg PO DAILY Rosuvastatin [Crestor] 10 mg PO DAILY Pregabalin [Lyrica] 75 mg PO BID Pantoprazole [Protonix] 40 mg PO DAILY Morphine Sulfate 15 mg PO BID Cholecalciferol [Vitamin D3 (25 Mcg = 1000 Iu)] 25 mcg PO DAILY Aspirin 81 mg PO DAILY Multivitamins, Thera [Multivitamin (formulary)] 1 tab PO DAILY Mometasone/Formoterol [Dulera 100 Mcg-5 Mcg Inhaler] 1 puff PO RT-BID Celecoxib [CeleBREX] 100 mg PO BID PRN PRN Reason: Pain Blue Emu Otc Cream 1 applic TOPICAL DAILY PRN PRN Reason: Pain carvediloL [Coreg] 3.125 mg PO BID Glimepiride [Amaryl] 4 mg PO BID Fenofibric Acid (Choline) [Trilipix] 135 mg PO DAILY Digoxin [Lanoxin] 125 mcg PO DAILY Bumetanide [BUMEX] 0.5 mg PO DAILY Lidocaine 5% Patch [Lidoderm 5% Patch] 1 patch TOPICAL DAILY PRN PRN Reason: Pain DULoxetine HCL [Cymbalta] 30 mg PO DAILY Discharge Medication List Aspirin 81 mg PO DAILY 09/02/21 [History] Blue Emu Otc Cream 1 applic TOPICAL DAILY PRN 09/02/21 [History] Bumetanide [BUMEX] 0.5 mg PO DAILY 09/02/21 [History] Celecoxib [CeleBREX] 100 mg PO BID PRN 09/02/21 [History] Cholecalciferol [Vitamin D3 (25 Mcg = 1000 Iu)] 25 mcg PO DAILY 09/02/21 [History] DULoxetine HCL [Cymbalta] 30 mg PO DAILY 09/02/21 [History] Digoxin [Lanoxin] 125 mcg PO DAILY 09/02/21 [History] Fenofibric Acid (Choline) [Trilipix] 135 mg PO DAILY 09/02/21 [History] Glimepiride [Amaryl] 4 mg PO BID 09/02/21 [History] Lidocaine 5% Patch [Lidoderm 5% Patch] 1 patch TOPICAL DAILY PRN 09/02/21 [History] Mometasone/Formoterol [Dulera 100 Mcg-5 Mcg Inhaler] 1 puff PO RT-BID 09/02/21 [History] Morphine Sulfate 15 mg PO BID 09/02/21 [History] Multivitamins, Thera [Multivitamin (formulary)] 1 tab PO DAILY 09/02/21 [History] Pantoprazole [Protonix] 40 mg PO DAILY 09/02/21 [History] Pregabalin [Lyrica] 75 mg PO BID 09/02/21 [History] Rosuvastatin [Crestor] 10 mg PO DAILY 09/02/21 [History] Tamsulosin HCl [Flomax] 0.4 mg PO DAILY 09/02/21 [History] carvediloL [Coreg] 3.125 mg PO BID 09/02/21 [History] traZODone HCL 50 mg PO HS 09/02/21 [History] Amoxic-Pot Clav 875-125Mg [Augmentin 875-125] 1 tab PO Q12HR 10 Days #20 tab 06/22 [Rx] Ciprofloxacin HCl [Cipro] 500 mg PO BID 10 Days #20 tab 09/09/21 [Rx] Follow up Appointment(s)/Referral(s): Kimberlee Phoenixheike, [NON-STAFF] - 1 Week Jairo Landeros MD [STAFF PHYSICIAN] - 1 Week Discharge Disposition: TRANSFER TO SNF/F
== END 2021-09-10 18:08 | DRG 256 ==
LOC: 5NMEDONC 18:03
PROVIDERS: ADMIT Internal Medicine; ATTEND Internal Medicine
PROC: 0Y6P0Z0 Detachment at Right 1st Toe, Complete, Open Approach (ICD-10-PCS; principal; 2021-09-03 11:15)
DX: E11.52 Type 2 diabetes mellitus with diabetic peripheral angiopathy with gangrene (principal); N17.9 Acute kidney failure, unspecified; R45.851 Suicidal ideations; M86.9 Osteomyelitis, unspecified; E11.628 Type 2 diabetes mellitus with other skin complications; G89.29 Other chronic pain; E11.65 Type 2 diabetes mellitus with hyperglycemia; Z20.822 Contact with and (suspected) exposure to COVID-19; L03.031 Cellulitis of right toe; E11.649 Type 2 diabetes mellitus with hypoglycemia without coma; E11.69 Type 2 diabetes mellitus with other specified complication; F32.9 Major depressive disorder, single episode, unspecified; F45.42 Pain disorder with related psychological factors; G62.9 Polyneuropathy, unspecified; I11.0 Hypertensive heart disease with heart failure; I25.10 Atherosclerotic heart disease of native coronary artery without angina pectoris; I25.2 Old myocardial infarction; B95.61 Methicillin susceptible Staphylococcus aureus infection as the cause of diseases classified elsewhere; B95.2 Enterococcus as the cause of diseases classified elsewhere; B96.89 Other specified bacterial agents as the cause of diseases classified elsewhere; I48.91 Unspecified atrial fibrillation; I50.9 Heart failure, unspecified; F41.9 Anxiety disorder, unspecified; L98.9 Disorder of the skin and subcutaneous tissue, unspecified; M19.90 Unspecified osteoarthritis, unspecified site; Z79.1 Long term (current) use of non-steroidal anti-inflammatories (NSAID); Z79.51 Long term (current) use of inhaled steroids; Z79.82 Long term (current) use of aspirin; Z79.84 Long term (current) use of oral hypoglycemic drugs; Z79.899 Other long term (current) drug therapy; Z95.1 Presence of aortocoronary bypass graft; Z95.0 Presence of cardiac pacemaker; Z95.5 Presence of coronary angioplasty implant and graft; Z85.46 Personal history of malignant neoplasm of prostate
CPT/HCPCS: 80048; 80053; 80162; 82565; 83735; 84100; 85025; 85610; 87040; 87070; 87075; 87077; 87186; 87205; 87635

== ENCOUNTER → 2021-12-02 | Outpatient (CLI) | payer MEDICARE, BC ==
[2021-12-02 19:00] LABS: Basophils # (A) 0.02 X 10*3/uL (0.00-0.10); Basophils % (A) 0.3 %; Eosinophils # (A) 0.24 X 10*3/uL (0.04-0.35); Eosinophils % (A) 3.5 %; HGB 13.9 g/dL (13.0-17.0); Lymphocytes # (A) 1.15 X 10*3/uL (0.90-5.00); Lymphocytes % (A) 16.6 %; MCH 26.1 pg (27.0-32.0); MCHC 30.2 g/dL (32.0-37.0); MCV 86.3 fL (80.0-97.0); Mean Platelet Volume 11.7 fL (9.5-12.2); Monocytes # (A) 0.59 X 10*3/uL (0.20-1.00); Monocytes % (A) 8.5 %; Neutrophils # (A) 4.88 X 10*3/uL (1.80-7.70); Neutrophils % (A) 70.2 %; Platelet Count 145 X 10*3/uL (140-440); RBC 5.33 X 10*6/uL (4.40-5.60); RDW 15.5 % (11.5-14.5); WBC 6.94 X 10*3/uL (4.50-10.00)
[2021-12-02 22:16] LABS: African American GFR (CKD) 50.9 (60.0-200.0); Anion Gap 14.9 mmol/L (10.00-18.00); BUN/Creat Ratio 28.62 Ratio (12.00-20.00); Blood Urea Nitrogen 41.5 mg/dL (9.0-27.0); Calcium 9.6 mg/dL (8.7-10.3); Carbon Dioxide 23.2 mmol/L (20.0-27.5); Non-African American GFR(CKD) 43.9 (60.0-200.0); Potassium 4.3 mmol/L (3.5-5.5)
== END | disposition home or self-care (01) ==
LOC: LABPAT 11:45
PROVIDERS: ATTEND Urology
DX: Z01.812 Encounter for preprocedural laboratory examination (principal); C61 Malignant neoplasm of prostate
CPT/HCPCS: 80048; 85025

== ENCOUNTER 2021-12-05 05:43 | Day surgery (SDC) | payer MEDICARE, BC ==
[2021-12-04 09:36] VITALS: BMI 23.3
[2021-12-05] MEDS ORDERED: LACTATED RINGERS 1,000 ML IV SCH (06:05)
--- NOTE | 2021-12-05 07:03 | P.GSHP ---
History of Present Illness H&P Date: 12/05/21 Chief Complaint: Prostate cancer The patient is an 86-year-old male with recently diagnosed prostate cancer. His PSA level is 19.33. His prostate volume is 55 mL. 5 of 12 biopsies show Amadou 7 adenocarcinoma. He is to be treated with IMRT and will undergo SpaceOAR implant to reduce rectal toxicity. - Cardiovascular Cardiovascular: Reports high blood pressure - Genitourinary (Female) Genitourinary: Reports nocturia Past Medical History Past Medical History: Cancer, Heart Failure, COPD, Diabetes Mellitus, Hearing Disorder / Deafness, Hypertension, Memory Impairment, Myocardial Infarction (CT), Osteoarthritis (OA), Prostate Disorder, Skin Disorder Additional Past Medical History / Comment(s): CT's X3 (stents, Pacemaker/AICD- pacemaker dependent), neuropathy, current prostate cancer, cellulitis, chronic back pain, "poor kidney function with one kidney", hard of hearing, "age related memory problems." Last Myocardial Infarction Date:: 2004 History of Any Multi-Drug Resistant Organisms: None Reported Past Surgical History: AICD, Back Surgery, Cholecystectomy, Heart Catheterization, Heart Catheterization With Stent, Orthopedic Surgery, Pacemaker, Tonsillectomy Additional Past Surgical History / Comment(s): Stents, pacemaker/defibrilator - [employer], left knee arthroscopy X2, great toe right foot amputated. Past Anesthesia/Blood Transfusion Reactions: No Reported Reaction Date of Last Stent Placement:: unknown Type of Cardiac Device: Permanent Pacemaker, AICD Device Placement Date:: unknown Past Psychological History: Anxiety, Depression Smoking Status: Former smoker Past Alcohol Use History: None Reported Additional Past Alcohol Use History / Comment(s): Quit smoking 40 yrs ago. Quit alcohol 30 yrs ago. Past Drug Use History: None Reported - Past Family History Mother Family Medical History: Cancer Brother(s) Family Medical History: Cancer Additional Family Medical History / Comment(s): 2 brothers had cancer. Medications and Allergies Home Medications Medication Instructions Recorded Confirmed Type Aspirin 81 mg PO DAILY 09/02/21 12/04/21 History Blue Emu Otc Cream 1 applic TOPICAL DAILY PRN 09/02/21 12/04/21 History Bumetanide [BUMEX] 0.5 mg PO DAILY 09/02/21 12/04/21 History Celecoxib [CeleBREX] 100 mg PO BID PRN 09/02/21 12/04/21 History Cholecalciferol [Vitamin D3 (25 25 mcg PO DAILY 09/02/21 12/04/21 History Mcg = 1000 Iu)] DULoxetine HCL [Cymbalta] 30 mg PO DAILY 09/02/21 12/04/21 History Digoxin [Lanoxin] 125 mcg PO DAILY 09/02/21 12/04/21 History Fenofibric Acid (Choline) 135 mg PO DAILY 09/02/21 12/04/21 History [Trilipix] Glimepiride [Amaryl] 4 mg PO BID 09/02/21 12/05/21 History Lidocaine 5% Patch [Lidoderm 5% 1 patch TOPICAL DAILY PRN 09/02/21 12/04/21 History Patch] Mometasone/Formoterol [Dulera 100 2 puff PO BID 09/02/21 12/05/21 History Mcg-5 Mcg Inhaler] Multivitamins, Thera [Multivitamin 1 tab PO DAILY 09/02/21 12/04/21 History (formulary)] Rosuvastatin [Crestor] 10 mg PO DAILY 09/02/21 12/04/21 History Tamsulosin HCl [Flomax] 0.4 mg PO DAILY 09/02/21 12/04/21 History carvediloL [Coreg] 3.125 mg PO BID 09/02/21 12/05/21 History traZODone HCL 50 mg PO HS 09/02/21 12/05/21 History Morphine Sulfate 15 mg PO BID 3 Days #6 tab 09/10/21 12/04/21 Rx Pregabalin [Lyrica] 75 mg PO BID 3 Days #6 cap 09/10/21 12/05/21 Rx Empagliflozin [Jardiance] 10 mg PO DAILY 12/04/21 12/04/21 History Fluticasone Nasal [place] [Flonase 1 spray EA NOSTRIL DAILY 12/04/21 12/05/21 History Nasal [place]] Nitroglycerin Sl Tabs [Nitrostat] 0.4 mg SUBLINGUAL Q5M PRN 12/04/21 12/04/21 History [place]-3 Fatty Acids/Fish Oil [Fish 1 each PO DAILY 12/04/21 12/05/21 History Oil 1,000 mg Softgel] Allergies Allergy/AdvReac Type Severity Reaction Status Date / Time contrast dye Allergy Unknown Uncoded 12/04/21 08:47 Surgical - Exam Vital Signs Temp Pulse Resp BP Pulse Ox 98.1 F 80 18 144/80 95 12/05/21 06:49 12/05/21 06:49 12/05/21 06:49 12/05/21 06:49 12/05/21 06:49 - General well developed, well nourished, no distress - Respiratory normal respiratory effort - Abdomen Abdomen: soft, non tender, no guarding, no rigid, no rebound - Genitourinary normal penis with no external lesions, testicles non-tender - Psychiatric oriented to time, oriented to person, oriented to place, speech is normal, memory intact Assessment and Plan (1) Malignant neoplasm of prostate Current Visit: Yes Status: Acute Code(s): C61 - MALIGNANT NEOPLASM OF PROSTATE SNOMED Code(s): 504910815 Plan: The SpaceOar implant has been reviewed in detail with the patient. He understands that the rationale for this is to create separation between the prostate and rectum, thus reducing the risk of radiation proctitis. The material begins to breakdown 12-13 weeks following implant, and is reabsorbed by the body. Risks include anesthesia, bleeding, infection, and perineal discomfort. He understands that if the rectal wall is perforated the procedure will need to be aborted.
[2021-12-05 07:08] LABS: Glucose,Whole Blood 140 mg/dL (75-99)
[2021-12-05] MEDS ORDERED: ONDANSETRON 4 MG/2 ML VIAL ONE (07:20)
[2021-12-05] MEDS ORDERED: ONDANSETRON 4 MG/2 ML VIAL IVP ONE (07:21)
[2021-12-05] MEDS ORDERED: PROPOFOL 10 MG/ML 20 ML VIAL IV ONE (07:42)
[2021-12-05] MEDS ORDERED: diphenhydrAMINE 50 MG/ML 1 ML VIAL ONE (07:42)
[2021-12-05] MEDS ORDERED: MIDAZOLAM 2 MG/2 ML VIAL ONE (07:42)
[2021-12-05] MEDS ORDERED: KETAMINE 10 MG/ML 20 ML VIAL ONE (07:42)
[2021-12-05] MEDS ORDERED: LIDOCAINE 2% INJ 20 MG/ML SQ ONE ×2 (08:01→08:05)
--- NOTE | 2021-12-05 08:22 | P.OP ---
Date of Procedure: 12/05/21 Preoperative Diagnosis: Adenocarcinoma the prostate Postoperative Diagnosis: Same Procedure(s) Performed: SpaceOAR Implant Anesthesia: MAC Surgeon: Yair Aponte Estimated Blood Loss (ml): 10 IV fluids (ml): 300 Pathology: none sent Condition: stable Disposition: PACU Indications for Procedure: The patient is an 86-year-old male with recently diagnosed prostate cancer. His PSA level is 19.33. His prostate volume is 55 mL. 5 of 12 biopsies show Gleas on 7 adenocarcinoma. He is to be treated with IMRT and will undergo SpaceOAR implant to reduce rectal toxicity. Operative Findings: 0.75 cm created between prostate and rectum. Description of Procedure: The patient was taken to the operating room and placed in the dorsolithotomy position, with his legs supported in Vishal stirrups. The external genitalia was prepped and draped sterilely. The Bruel and Kjaer transrectal ultrasound probe was placed intrarectally. The prostate was imaged. The probe was then placed within the stabilizing stand. A spinal needle was advanced under ultrasonic guidance to the level of the urogenital diaphragm, and lidocaine was used to infiltrate the tissues as the needle was withdrawn. Next, the SpaceOAR needle was passed through the midline of the perineum, 1-2 cm anterior to the anal opening. The needle was slowly advanced under ultrasonic guidance until the needle tip was located within the fat plane between the prostate and rectum, at the level of the mid prostate gland. The needle was confirmed to be midline on the axial imaging. A small amount of normal saline was injected for hydrod issection. Next, the SpaceOAR components were mixed and loaded into the Y connector per protocol. The Y connector was then connected to the needle, and the components were injected slowly over a course of approximately 12 seconds. A total of 10 ml was injected. Significant distance was created between the prostate and rectum, as desired. It should be noted that at no point was there any concern of rectal perforation. The needle was withdrawn, as well as the transrectal ultrasound probe, and the procedure was terminated. The patient tolerated the procedure well and was taken to the recovery room in stable condition.
[2021-12-05] MEDS ORDERED: HYDROmorphone 0.5 MG/0.5 ML SYRINGE IVP ONE ×2 (08:26→08:30)
[2021-12-05] MEDS ORDERED: HYDROmorphone 1 MG/ML 1 ML SYRINGE ONE (08:30)
[2021-12-05 08:39] VITALS: RESP 16; TEMP 98.3
[2021-12-05 09:46] VITALS: BP 147/89; PULSE 82
== END 2021-12-05 10:03 | disposition home or self-care (01) ==
LOC: OR 05:43
PROVIDERS: ATTEND Urology
DX: C61 Malignant neoplasm of prostate (principal); I11.0 Hypertensive heart disease with heart failure; I50.9 Heart failure, unspecified; J44.9 Chronic obstructive pulmonary disease, unspecified; E11.40 Type 2 diabetes mellitus with diabetic neuropathy, unspecified; H91.90 Unspecified hearing loss, unspecified ear; R41.3 Other amnesia; L03.90 Cellulitis, unspecified; I25.2 Old myocardial infarction; M19.90 Unspecified osteoarthritis, unspecified site; G89.29 Other chronic pain; M54.9 Dorsalgia, unspecified; F41.9 Anxiety disorder, unspecified; F32.A Depression, unspecified; N28.9 Disorder of kidney and ureter, unspecified; Z90.5 Acquired absence of kidney; Z97.2 Presence of dental prosthetic device (complete) (partial); Z95.5 Presence of coronary angioplasty implant and graft; Z95.810 Presence of automatic (implantable) cardiac defibrillator; Z95.0 Presence of cardiac pacemaker; Z90.49 Acquired absence of other specified parts of digestive tract; Z98.890 Other specified postprocedural states; Z87.891 Personal history of nicotine dependence; Z80.9 Family history of malignant neoplasm, unspecified; Z79.84 Long term (current) use of oral hypoglycemic drugs; Z79.82 Long term (current) use of aspirin; Z79.899 Other long term (current) drug therapy; Z91.041 Radiographic dye allergy status
CPT/HCPCS: 82525; 55874; C1889; J2001; J2250; J1200; J0690; J2405; J1170; J2704